=== PATIENT | male | born 1950 | race Caucasian/White ===

== ENCOUNTER 2018-09-16 11:23 | Inpatient (IN) ==
[2018-09-16] MEDS ORDERED: ZOSYN 3.375 GM in NS 50 ML IV ONE (12:56)
[2018-09-16 13:02] LABS: BASO# 0.03 X1000 (0.0-0.2); BASO% 0.3 % (0.0-0.8); EOS# 0.18 X1000 (0.0-0.7); EOS% 1.8 % (0.0-10.0); HEMATOCRIT 36.3 % (42.0-52.0); HEMOGLOBIN 11.8 g/dL (14.0-18.0); IMM GRAN# 0.11 X1000 (0.0-0.04); IMM GRAN% 1.1 % (0.0-0.5); LYMPH% 29.2 % (20.5-51.1); MCH 29.9 PG (27-31); MCHC 32.5 g/dL (33-37); MCV 91.9 FL (81-99); MONO# 0.96 X1000 (0.11-0.59); MONO% 9.4 % (1.7-9.3); MPV 9.8 FL (7.4-10.4); NEUT# 5.98 X1000 (1.4-6.5); NEUT% 58.2 % (42.2-75.2); PLT 337 X1000 (130-400); RBC 3.95 XMIL (4.7-6.1); RDW 13.5 % (11.5-14.5); WBC 10.26 X1000 (4.8-10.8)
[2018-09-16 13:20] LABS: ALB/GLOB RATIO 0.9; ALBUMIN 3.4 g/dL (3.5-5.0); CALCIUM 9.1 mg/dL (8.8-10.2); CREATININE 1.4 mg/dL (0.7-1.2); POTASSIUM 3.9 mmol/L (3.5-5.1); TOTAL BILIRUBIN 0.41 mg/dL (0.20-1.00)
--- NOTE | 2018-09-16 13:23 | Diag Imaging Result Doc PS360 ---
XRAY PELVIS W/HIP 2-3VW LT - 09/16/2018 INDICATION: FALL TECHNIQUE: Two views COMPARISON: 09/24/2014 FINDINGS: Stable defect of the right pubic symphysis and pubic rami. There is worsening severe osteoarthritis of the left hip with complete loss of the joint space. There is also severe sclerosis, irregularity, and spurring. There is moderate osteoarthritis of the right hip as well that appears stable. There is worsening heterogeneous density of the bones throughout the sacral wings. These are compatible with chronic sacral insufficiency fractures. No acute fracture or dislocation. IMPRESSION: Extensive chronic changes. Electronically signed by Travon Fall 09/16/2018 1:21 PM
[2018-09-16 15:27] LABS: URINE SOURCE CATH
[2018-09-16 15:29] LABS: BILIRUBIN URINE NEGATIVE (NEGATIVE); BLOOD URINE SMALL (NEGATIVE); COLOR YELLOW; GLUCOSE URINE NEGATIVE (NEGATIVE); KETONE URINE NEGATIVE (NEGATIVE); LEUKOCYTES URINE LARGE (NEGATIVE); NITRITE URINE NEGATIVE (NEGATIVE); PH URINE 7.5; PROTEIN URINE 50 mg/dL (NEGATIVE); SP GRAVITY URINE 1.011; TURBIDITY URINE TURBID (CLEAR); UROBILINOGEN URINE NORMAL (NORMAL)
[2018-09-16 15:32] LABS: UR EPITHELIAL CELLS <10 /HPF (<10); URINE BACTERIA 4+ /HPF; URINE WBC TNTC /HPF (<10)
[2018-09-16 15:53] LABS: URINE CASTS NONE SEEN; URINE CRYSTALS TRIPLE PHOS PRESENT; URINE YEAST NONE SEEN
--- NOTE | 2018-09-16 17:28 | HISTORY AND PHYSICAL ---
HISTORY OF PRESENT ILLNESS: This is a 67-year-old, 11 years ago noticed some gross hematuria. They found prostate cancer, ended up on biopsy had a Alberto 8. He had positive margin, negative nodes. He underwent robotic surgery per Urology, I think Dr. Fowler here, and this was followed by radiation first and then chemotherapy which need one in his words worked and they put him on hormone therapy which worked for a time. He developed some pain in the left iliosacral area, could not find anything on cystoscopy, but the pain intensified. Eventually they found a bone that had grown into the bladder and he went to [facility] where he had a urostomy pouch and bladder removal. He has had trouble with his left arm. They found metastatic cancer on the right side. During that surgery, somewhere around that surgery, he had a CVA with and they found metastatic cancer on the right side of his brain, had a CVA and affected his left side, left arm and left leg. He has had more trouble getting around and has had some falls and recently had a pretty good fall. His left leg is weaker and he is not able to walk and ambulate and feels much worse. Apparently, there is degenerative arthritis in the left hip and is [id number], and he is not a candidate for surgery. ALLERGIES: Lyrica. FAMILY HISTORY: No pertinent family history. SOCIAL HISTORY: Not much history of alcohol. Used to drink a couple times a year. One or 2 cigars a month. No tobacco. PAST MEDICAL HISTORY: No significant past surgical history other than his cystectomy and urostomy pouch. REVIEW OF SYSTEMS: Constitutional: He has gained weight steadily, so he has been eating pretty good. HEENT: No change in visual or hearing acuity. Musculoskeletal: No neck pain, but he does have bilateral shoulder pain and weakness in his left arm and leg. Neurologic: Legs are weaker. Actually both hips both him but left hip and he is not able to ambulate at this time. He has had several falls. Gastrointestinal and Genitourinary: No complaints of nausea or diarrhea. He does have a urostomy pouch and catheter attached to a leg bag. Skin: No new rashes. HEENT: No complaints of significant head trauma. PHYSICAL EXAMINATION: GENERAL: Awake and alert, oriented x3, very pleasant. VITAL SIGNS: Temperature is 98.1 degrees, pulse 75, respirations 13, blood pressure 148/80. HEENT: Pupils are equal and round. LUNGS: Clear in all lung lam. CARDIOVASCULAR: Regular rhythm and rate without murmur or S3. ABDOMEN: Soft. He has abdominal wall hernia without any pain around his urostomy bag. SKIN: Warm and dry. Multiple areas of ecchymosis on his arms. LABORATORIES: White count 10,260, hematocrit 36, platelet count 337,000. Sodium 140, potassium 3.9, chloride 103, BUN 18, creatinine 1.4, calcium 9.1, AST 16, ALT 11, alkaline phosphatase 151. Urinalysis too numerous to count white blood cells, 10 to 20 red blood cells. He has 4+ bacteria. RADIOLOGIC STUDIES: X-ray of his hip and pelvis here in the emergency room. He has extensive chronic changes. Stable defect in the right pubic symphysis and pubic rami. There is worsening severe osteoarthritis of the left hip. Complete loss of joint space. There is also severe sclerosis irregularly and spurring. There is moderate osteoarthritis of the right hip as well. Appears stable. Worsening heterogeneous density of the bone throughout the sacral wings. Is compatible with chronic sacral insufficiency fractures. No acute fractures identified. ASSESSMENT AND PLAN: 1. General weakness, more pain, unable to walk and he needs to pursue trying to go to rehab. His is not going to be able to care for him at home and get him up. 2. Metastatic prostate cancer with metastasis to the bones and to his head. 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 3. Obesity. 4. He has got acute kidney injury, probably on top of chronic kidney disease. His creatinine is 1.4. We will give him some IV hydration, see if that will help, put him on a regular diet. Lastly we will treat, it is difficult to tell whether this represents an infection but he has quite a few red jae-[id number]-gx-count white blood cells and 4+ bacteria, so we will go ahead and treat him. I think we will use for right now just Rocephin or ceftriaxone 1 g IV q.24 h. He requests to go to [facility] and so we will see if we can get him to [facility]. cc: Romulo Boateng MD
[2018-09-16] MEDS: ROCEPHIN 1 GM in NS 50 ML IV SCH (17:30)
[2018-09-16 17:34] LABS: FREE T4 1.21 ng/dL (0.93-1.70); TSH 2.16 uIUmL (0.27-4.20)
--- NOTE | 2018-09-16 17:52 | PROVIDER DOCUMENTATION ---
This chart was entered by Rhonda Reina Scribe, acting as scribe for Carlene Patterson MD. HPI-Musculoskeletal Pain/Inj - GENERAL Chief Complaint: Hip Pain Stated Complaint: HIP PAIN Time Seen by Provider: 09/16/18 12:25 Source: patient - HX OF PRESENT ILLNESS-MUSKULOSKELTAL Nature of Presenting Problem: Patient is a 67 year old male who presents to the ED via EMS with left hip pain after having a fall 1 week ago. Patient states history of prostate cancer with mets to right side brain. Report having partial paralysis to left arm and left leg from the brain tumor. Patient also reports having a bone spur removed from left pelvic that was in his bladder. Patient has an urostomy. Patient's s tates patient also had a foul odored penile discharge. Quality of Pain: reports: aching Severity in ED: mild Onset/Duration: 1 week ago Timing: still present, getting worse Any recent injury?: Yes (fall ) Locality of Occurance: Home Similar Symptoms Previously?: Yes Recently seen or treated by another doctor?: No - FALL INJURY Location of Pain/Injury: reports: other (left hip) Pain Radiation: reports: no radiation Reason for Fall: reports: unknown Symptoms prior to fall:: reports: none Loss of Consciousness: no loss of consciousness Injury Associated Symptoms: reports: trouble walking - HIP/PELVIS PAIN/INJURY Hip Pain Location: reports: hip (L) Pain Radiation: reports: no radiation Context / Method of Injury: reports: fall - LOWER EXTREMITY PAIN/INJURY Lower Extremities Pain: hip: left Context / Method of Injury: reports: fell Review of Systems - Adult - REVIEW OF SYSTEMS - ADULT Constitutional: reports: no symptoms reported. denies: chills, fever, fatique Eyes: reports: no symptoms reported Ears, Nose, Mouth & Throat: reports: no symptoms reported Cardiovascular: reports: no symptoms reported Respiratory: reports: no symptoms reported Gastrointestinal: reports: no symptoms reported Genitourinary: reports: see HPI, discharge. denies: hematuria, urgency Musculoskeletal: reports: see HPI, other (left hip pain). denies: back pain, muscle aches, neck pain Integumentary: reports: no symptoms reported Neurological: reports: no symptoms reported Psychiatric: reports: no symptoms reported Endocrine: reports: no symptoms reported Hematologic/Lymphatic: reports: no symptoms reported Allergic/Immunologic: reports: no symptoms reported All Other Systems: Reviewed and Negative Past History - Adult - PAST MEDICAL HISTORY-ADULT Review of Records: reports: Old Records Reviewed, Nursing Assessment Review, Medications Reviewed, Social history reviewed & non-contributory. Major Childhood Illnesses: reports: denies history Cardiovascular: reports: HTN, hyperlipidemia Respiratory: reports: denies history Gastrointestinal: reports: denies history Obstetrical/Gynecological: reports: denies history Genitourinary: reports: prostate cancer Musculoskeletal: reports: denies history Neurological: reports: cancer/tumor (tumor) Endocrine/Immune: reports: denies history Other Conditions: reports: denies history - PRIOR SURGERIES/PROCEDURES Surgical/Procedure History: reports: reviewed, not pertinent, other (urosotomy) - IMMUNIZATION STATUS Childhood Immunizations: See Nurse Assessment Flu Vaccine: See Nurse Assessment - FAMILY HISTORY Family History: reviewed, not pertinent - SOCIAL HISTORY Smoking: denies Substance Use: denies Living Situation: family Physical Exam-Injury Related - Physical Exam-Injury Related Initial Vital Signs Reviewed: Yes General Appearance: alert, no apparent distress, obese. negative: lethargic, slow to respond Head, Ears, Nose, Mouth & Throat: normocephalic/atraumatic, moist mucous membranes. negative: angioedema, hearing deficit Respiratory: chest non-tender, lungs clear, normal breath sounds. negative: crackles, rhonchi, wheezing Cardiovascular: normal peripheral pulses, irregularly irregular. negative: tachycardia, systolic murmur Abdominal Exam: normal bowel sounds, non tender, soft, other (urostomy to RLQ). negative: distended, guarding, rebound Male Genitalia: deferred Extremity: non-tender, other (1 + pitting edema to bilateral lower extremities.) . negative: deformity, erythema Integumentary: normal color, warm/dry. negative: ecchymosis, jaundice, rash, abrasion, laceration Neurologic: grossly normal, motor weakness (LUE and LLE, which is chronic from brain tumor.). negative: aphasia, facial droop Psych/Mental Status: normal mood/affect, oriented x 3. negative: anxious, paranoid Progress - PLAN OF CARE/RESULTS Progress/Plan/Lab Results: Laboratory Results - last 24 hr 09/16/18 09/16/18 09/16/18 11:42 11:42 15:05 Vitamin B12 531 Folate 32.6 H TSH 2.16 Free T4 1.21 Urine Crystals TRIPLE PHOS PRESENT Small Round Cells Not Reportable Urine Casts NONE SEEN Urine Yeast-like Cells NONE SEEN Orders Category Date Time Status Admit - [facility] Routine AdmDCTranf 09/16/18 16:25 Active Activity - Up with Assistance ORDERED Care 09/16/18 16:25 Active Intake and Output-Strict ORDERED Care 09/16/18 16:25 Active Saline Loc NOW Care 09/16/18 12:51 Completed Update & Confirm Home Medicati ROUTINE Care 09/16/18 16:28 Completed Vital Signs Order Q 8-HR ASSESS Care 09/16/18 16:25 Active Z-Document. for Tele Applied ORDERED Care 09/16/18 16:26 Completed Social Service Consult Routine Cons 09/16/18 16:31 Active Regular Diet Diet 09/16/18 16:27 Active CHEST-1 VIEW [RAD] Routine Exams 09/17/18 06:00 Completed XRAY PELVIS W/HIP 2-3VW LT [RAD] Stat Exams 09/16/18 12:49 Completed BLOOD CULTURE [BLDCUL] Stat Lab 09/16/18 13:27 Results CBC WITH DIFF [HEME] Routine Lab 09/16/18 18:57 Completed CBC WITH DIFF [HEME] Stat Lab 09/16/18 11:42 Completed COMPREHENSIVE METABOLIC PANEL [CHEM] Routine Lab 09/16/18 18:57 Completed COMPREHENSIVE METABOLIC PANEL [CHEM] Stat Lab 09/16/18 11:42 Completed URINALYSIS W/POSS RFLX CULT [URINALYSIS] Stat Lab 09/16/18 15:05 Completed URINE CULTURE [RM] Routine Lab 09/16/18 15:36 Results URINE MANUAL MICROSCOPIC [URINALYSIS] Stat Lab 09/16/18 15:05 Completed Piperacillin/Tazobactam [Zosyn] 3.375 gm Med 09/16/18 12:56 Discontinued 0.9% Sodium Chloride Inj [Ns] 50 ml IV NOW Telemetry [OM.EQ] Routine Oth 09/16/18 16:25 Active Physical Therapy Eval/Treatment [OM.PT] Routine Ther 09/16/18 16:25 Active Transfer/Admit Order [TRANSFER] Routine Transfer 09/16/18 16:33 Completed Result Diagrams: 09/17/18 06:30 09/17/18 06:30 - XRAY 1 XRAY: Left XRAY Study: Pelvis, Hip Impression: See EMR Report ( XRAY PELVIS W/HIP 2-3VW LT - 09/16/2018 INDICATION: FALL TECHNIQUE: Two views COMPARISON: 09/24/2014 FINDINGS: Stable defect of the right pubic symphysis and pubic rami. There is worsening severe osteoarthritis of the left hip with complete loss of the joint space. There is also severe sclerosis, irregularity, and spurring. There is moderate osteoarthritis of the right hip as well that appears stable. There is worsening heterogeneous density of the bones throughout the sacral wings. These are compatible with chronic sacral insufficiency fractures. No acute fracture or dislocation. IMPRESSION: Extensive chronic changes. Electronically signed by Travon Fall 09/16/2018 1:21 PM 09/16/18 1321 Interpreting Physician: Travon Fall MD Dictated Date/Time: 09/16/18 1318 cc: Carlene Patterson MD; Johnathan Clayton MD) - CONSULTS/PCP/HOSPITALIST Notification #1 *Consult/PCP/Hospitalist*: MOHIT Marrero for Hospitalist Time Discussed: 14:08 Reason/Comments: Dr. Patterson consulted with Elida about patient. Consult Disposition: Will see in ED, Admit Departure - Departure Date of Disposition Decision: 09/16/18 Time of Disposition Decision: 14:08 DIAGNOSIS: UTI (urinary tract infection) Disposition: ADMITTED INPATIENT 09 Certified Medical Emergency: Emergent Condition: Stable - Critical Care Note This patient required my direct & personal management of CC.: No Attestation - Physician/ DENISSE Attestation The physician spent face to face time with patient:: Yes Advanced Practice Provider documentation review:: Supervising physician onsite and consulted in the evaluation and care of this patient. The physician did have a face to face encounter with the patient. This chart was documented by the indicated scribe, (Rhonda Reina Scribe) and accurately reflects the services I performed and decisions made by , Carlene Patterson MD, as attested by the provider's signature.
[2018-09-16 19:17] LABS: BASO# 0.06 X1000 (0.0-0.2); BASO% 0.6 % (0.0-0.8); EOS# 0.18 X1000 (0.0-0.7); EOS% 1.9 % (0.0-10.0); HEMATOCRIT 35.5 % (42.0-52.0); HEMOGLOBIN 11.6 g/dL (14.0-18.0); IMM GRAN# 0.08 X1000 (0.0-0.04); IMM GRAN% 0.9 % (0.0-0.5); LYMPH% 28.8 % (20.5-51.1); MCH 30.4 PG (27-31); MCHC 32.7 g/dL (33-37); MCV 92.9 FL (81-99); MONO# 0.92 X1000 (0.11-0.59); MONO% 9.8 % (1.7-9.3); MPV 9.3 FL (7.4-10.4); NEUT# 5.45 X1000 (1.4-6.5); PLT 291 X1000 (130-400); RBC 3.82 XMIL (4.7-6.1); RDW 13.6 % (11.5-14.5); WBC 9.39 X1000 (4.8-10.8)
[2018-09-16 19:31] LABS: INR 0.95; PROTIME 13.2 Seconds (11.0-16.0)
[2018-09-16 19:32] LABS: PTT 27.4 Seconds (22.3-41.8)
[2018-09-16 19:38] LABS: ALBUMIN 3.4 g/dL (3.5-5.0); CALCIUM 8.6 mg/dL (8.8-10.2); CREATININE 1.3 mg/dL (0.7-1.2); TOTAL BILIRUBIN 0.5 mg/dL (0.20-1.00); TOTAL PROTEIN 6.5 g/dL (6.3-8.3)
[2018-09-16] MEDS: ATIVAN PO SCH (21:38)
[2018-09-16] MEDS: BENADRYL PO SCH (21:39)
[2018-09-16] MEDS: MELATONIN PO SCH (21:39)
[2018-09-16] MEDS: PERCOCET-10 PO SCH (21:39)
[2018-09-16] MEDS: VOLTAREN PO SCH (21:39)
[2018-09-17] MEDS: PROTONIX PO SCH (06:07)
[2018-09-17] MEDS: NS 1,000 ML IV SCH ×2 (06:45→13:12)
[2018-09-17 07:11] LABS: HEMOGLOBIN 10.4 g/dL (14.0-18.0); MCH 29.6 PG (27-31); MCHC 32.5 g/dL (33-37); MCV 91.2 FL (81-99); MPV 9.2 FL (7.4-10.4); RBC 3.51 XMIL (4.7-6.1); RDW 13.4 % (11.5-14.5); WBC 7.38 X1000 (4.8-10.8)
[2018-09-17 07:35] LABS: AGAP 11; ALKALINE PHOSPHATASE 147 U/L (32-122); BUN 17 mg/dL (8-22); CALCIUM 7.9 mg/dL (8.8-10.2); CHLORIDE 106 mmol/L (98-107); COSMO 279; CREATININE 1.2 mg/dL (0.7-1.2); ESTIMATED GFR > 60; GLUCOSE 97 mg/dL (70-104); GOT 14 U/L (10-34); GPT 8 U/L (10-44); MAGNESIUM 1.9 mg/dL (1.5-2.7); POTASSIUM 3.9 mmol/L (3.5-5.1); SODIUM 139 mmol/L (136-145); TCO2 22 mmol/L (25-35); TOTAL PROTEIN 5.8 g/dL (6.3-8.3)
--- NOTE | 2018-09-17 07:50 | Diag Imaging Result Doc PS360 ---
EXAM: CHEST-1 VIEW - 09/17/2018 HISTORY: general weakness TECHNIQUE: One view chest COMPARISON: 09/02/2014 FINDINGS: Heart size appears within normal limits. The lungs appear clear. There is no pleural effusion or pneumothorax identified. IMPRESSION: No evidence of acute disease. Electronically signed by Galen Irwin 09/17/2018 7:48 AM
[2018-09-17] MEDS ORDERED: SOLU-MEDROL IV ONE (09:19)
[2018-09-17] MEDS: ATIVAN PO SCH ×2 (09:53→21:46)
[2018-09-17] MEDS: VOLTAREN PO SCH ×2 (09:54→21:46)
[2018-09-17] MEDS: EFFEXOR XR PO SCH (09:54)
[2018-09-17] MEDS: PERCOCET-10 PO SCH ×2 (09:54→21:47)
[2018-09-17] MEDS: KEPPRA PO SCH (09:54)
[2018-09-17] MEDS: ROCEPHIN 1 GM in NS 50 ML IV SCH (17:22)
--- NOTE | 2018-09-17 18:11 | EKG Report ---
Test Performed on : 09/17/2018 6:03:55 PM Test Reason : ELEVATED TROPINE Blood Pressure : / mmHG Vent. Rate : 056 BPM Atrial Rate : 056 BPM P-R Int : 160 ms QRS Dur : 096 ms QT Int : 500 ms P-R-T Axes : 025 -16 029 degrees QTc Int : 482 ms Sinus bradycardia. with frequent premature ventricular complexes. Nonspecific ST and T wave abnormality Prolonged QT Abnormal ECG When compared with ECG of 07-JUN-2010 19:48, Sinus rhythm. has replaced Atrial flutter. Vent. rate has decreased BY 49 BPM Nonspecific T wave abnormality now evident in Inferior leads Nonspecific T wave abnormality, worse in Anterolateral leads Unconfirmed Result
--- NOTE | 2018-09-17 19:35 | PROGRESS NOTE ---
DATE: 09/17/2018 SUBJECTIVE: The patient notes that he is still hurting all over, but denies that his pain is any worse than usual. He states he is still having pain in his left hip. He notes that he frequently has falling episodes at home. OBJECTIVE: Vital signs reviewed. He is awake, alert. He is in no distress. He is pleasant to talk with.HEENT: Normocephalic, atraumatic. ANN. Neck supple. No JVD. CV: Regular rate. No murmurs. Chest clear, nonlabored. Abdomen soft, obese. Positive ostomy bag. Extremities: He is able to move all extremities. ASSESSMENT: 1. Generalized weakness with frequent falls. 2. Metastatic prostate cancer with metastasis to bone and brain. 3. Left hip pain. 4. Chronic pain. 5. Chronic kidney injury. 6. Elevated troponin. His most recent troponin was elevated. 7. Urinary tract infection. PLAN: We will continue the patient in the hospital. We will get an EKG, repeat his troponin, and we will discuss with Cardiology options regarding his troponin levels. We will continue antibiotics until his urine culture is finalized. cc: Polo Moreno MD
[2018-09-17] MEDS: MELATONIN PO SCH (21:46)
[2018-09-17] MEDS: BENADRYL PO SCH (21:47)
[2018-09-17] MEDS ORDERED: TYLENOL PO PRN (23:15)
[2018-09-18] MEDS: PROTONIX PO SCH ×2 (05:04→06:04)
[2018-09-18 07:13] LABS: HEMATOCRIT 30.3 % (42.0-52.0); HEMOGLOBIN 9.9 g/dL (14.0-18.0); MCH 29.8 PG (27-31); MCHC 32.7 g/dL (33-37); MCV 91.3 FL (81-99); MPV 9.6 FL (7.4-10.4); RBC 3.32 XMIL (4.7-6.1); RDW 13.3 % (11.5-14.5); WBC 7.85 X1000 (4.8-10.8)
[2018-09-18 08:10] LABS: ALBUMIN 3.1 g/dL (3.5-5.0); CREATININE 1.3 mg/dL (0.7-1.2); POTASSIUM 4.2 mmol/L (3.5-5.1); TOTAL BILIRUBIN 0.3 mg/dL (0.20-1.00); TOTAL PROTEIN 5.8 g/dL (6.3-8.3)
[2018-09-18] MEDS: PERCOCET-10 PO SCH ×2 (08:32→20:42)
[2018-09-18] MEDS: EFFEXOR XR PO SCH (08:33)
[2018-09-18] MEDS: KEPPRA PO SCH (08:33)
[2018-09-18] MEDS: ATIVAN PO SCH ×2 (08:33→20:42)
[2018-09-18] MEDS: VOLTAREN PO SCH ×2 (08:33→20:42)
[2018-09-18] MEDS ORDERED: DURAGESIC 25 MICROGM/HR PATCH TD SCH (09:00)
[2018-09-18] MEDS ORDERED: DURAGESIC 50 MICROGM/HR PATCH TD SCH (09:00)
[2018-09-18] MEDS ORDERED: DURAGESIC 75 MICROGM/HR PATCH TD SCH (09:00)
--- NOTE | 2018-09-18 14:18 | PROGRESS NOTE ---
DATE: 09/18/2018 SUBJECTIVE: Patient denies any chest pain or palpitations. Denies any shortness of breath. He states he is starting to feel a bit better and starting to feel a little bit stronger. He is still having difficulty ambulating. PHYSICAL EXAMINATION: Vital Signs: Temperature 98 degrees, pulse 57, respiratory rate 18, and BP 131/59. General: Patient is in no current respiratory distress sitting in the bed talking to his family. HEENT: Normocephalic. Neck: Supple. Cardiovascular: Regular rate. Chest: Clear and nonlabored. Abdomen: Soft. Nondistended. Extremities: Moves all extremities. Neurologic: No changes. ASSESSMENT: 1. Elevated troponin. 2. Urinary tract infection with gram-negative rods. 3. Chronic left hip and back pain. 4. Generalized weakness with frequent falls. 5. Metastatic prostate cancer. PLAN: We will consult Cardiology for their opinion on his elevated troponin. We will continue to follow. Continue physical therapy. Further orders as needed. Continue antibiotics. cc: Polo Moreno MD
[2018-09-18] MEDS: ROCEPHIN 1 GM in NS 50 ML IV SCH (17:18)
--- NOTE | 2018-09-18 20:15 | CONSULTATION ---
DATE OF CONSULTATION: 09/18/2018 IMPRESSION: 1. Mild nonspecific elevation in troponin of unclear clinical significance. Patient has not had any chest pain or dyspnea symptoms. However, he did have fatigue last week and clinical scenario with metastatic prostate cancer and relative immobilization raise concern regarding venous thromboembolism. 2. Metastatic prostate cancer. 3. Metastatic prostate cancer to right hemisphere of the brain with resultant left-sided weakness and relative immobilization which has been worse of late. RECOMMENDATIONS: 1. Echocardiography. 2. Venous Doppler study. 3. Consider screen for pulmonary embolus with chest CT scan. 4. Otherwise conservative cardiovascular management as preferred by patient. He is fully aware of his limited prognosis with stage IV prostate cancer and expresses his desired to have conservative management and forego any pursuit of invasive coronary evaluation should it come to this. This is certainly very reasonable. 5. Treat urinary infection as you are doing. 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 Evaluation was noteworthy for significant white blood cells in urine as well as mild nonspecific elevation in troponin. Because of the latter, Cardiology was consulted. He denies any chest pain or shortness of breath. He is not able to get around very well over the past few weeks. He does relate that for a period of time last week he had some rather unusual fatigue. He has chronic tendency for left lower extremity to have swelling. PAST MEDICAL HISTORY: Metastatic prostate cancer. This was recently diagnosed 11 years ago when he presented with gross hematuria. He had a Alberto's 8 on his biopsy and he underwent robotic prostatectomy. Margins were positive and lymph nodes were negative. He had radiation therapy. Apparently, because of some elevation in PSA, he later had chemotherapy and was started on hormonal therapy. 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 He had cystectomy and urostomy pouch created. In the last few years he started having left-sided weakness and was found to have a metastatic lesion in the right brain. He has had radiation therapy directed at this as well. ALLERGIES: He is allergic or intolerant to Lyrica. MEDICATIONS PRIOR TO ADMISSION: As listed. 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. He smokes a few cigars per week. He does not use alcohol. FAMILY HISTORY: Positive for prostate cancer and breast cancer. There is family history of coronary disease with older age of clinical onset. REVIEW OF SYSTEMS: Pulmonary: Noncontributory regarding the history of present illness. Gastrointestinal: Noncontributory regarding the history of present illness. Constitutional: Noncontributory regarding the history of present illness. Remainder of review of systems negative/noncontributory regarding the history present illness with 14 total systems reviewed. PHYSICAL EXAMINATION: Reveals an obese, older white male in no distress.Vital signs: Blood pressure 120/68, heart rate 57, oxygen saturation 97% on room air. HEENT: Extraocular movements appear intact. Mucous membranes moist. Neck: Supple, without jugular venous distention. No carotid bruits. Chest: Clear to auscultation. Cardiac Exam: Reveals a regular rate and rhythm without appreciable murmur or gallop. Abdomen: Soft. Bowel sounds are normal. Extremities: Noteworthy for trace edema bilaterally. Neurologic: Reveals left-sided weakness. Speech is fluent. PERTINENT DATA: Twelve-lead EKG demonstrates sinus bradycardia with occasional premature ventricular complexes and nonspecific ST and T-wave abnormality. LABORATORY DATA: Includes white blood cell count 7.5, hematocrit 30.3, hemoglobin 9.9, platelet count 288,000. Sodium 140, potassium 4.2, chloride 108, carbon dioxide 21, BUN 19, creatinine 1.3, glucose 105. Initial troponin 0.157. Followup troponin 0.124 and 0.115. Initial CPK 84. Followup CPK 78 and 74. Urinalysis noteworthy for ejz-oukgarlb-ia-count white blood cells in the urine. cc: Vinicio Grullon MD
--- NOTE | 2018-09-18 20:21 | Extremity Venous Study ---
EXAM: Venous U/S Bilateral Legs 09/18/2018 HISTORY: rule out DVT TECHNIQUE: Compression venous ultrasound with color Doppler flow COMMENT: The deep veins of the lower extremities are compressible and there is normal color Doppler flow bilaterally with augmentation. No evidence of superficial venous thrombosis is present. IMPRESSION: No evidence of deep venous thrombosis. Electronically signed by Arcadio Torrez 09/18/2018 8:18 PM
[2018-09-18] MEDS: MELATONIN PO SCH (20:42)
[2018-09-18] MEDS: BENADRYL PO SCH (20:42)
[2018-09-19] MEDS: PROTONIX PO SCH ×2 (05:22→06:01)
[2018-09-19] MEDS: EFFEXOR XR PO SCH (08:11)
[2018-09-19] MEDS: VOLTAREN PO SCH (08:11)
[2018-09-19] MEDS: KEPPRA PO SCH (08:11)
[2018-09-19] MEDS: ATIVAN PO SCH (08:11)
[2018-09-19] MEDS: PERCOCET-10 PO SCH (08:12)
[2018-09-19] MEDS ORDERED: OMNICEF PO SCH (09:00)
[2018-09-19] MEDS ORDERED: PRINIVIL PO SCH (09:00)
--- NOTE | 2018-09-19 10:13 | ECHO REPORT ---
ORDER DATE: 09/18/2018 INTERPRETING PHYSICIAN: Dr. Carr REQUESTING PHYSICIAN: Hospitalist. CLINICAL INDICATIONS: Positive troponin, cancer of the prostate. M-MODE MEASUREMENTS: Left ventricle end diastole: 5.37 cm. Left ventricle end systole: 2.3 cm. Posterior wall: 1.1 cm. Interventricular septum: 1.0 cm. Left atrium: 5.1 cm. Aortic diameter: 4.0 cm. SUMMARY OF 2-DIMENSIONAL IMAGING: This study was really very limited. The patient is obese. Optison was added to optimize visualization of the endocardium. The patient's cardiac cycles are irregular and he is probably in atrial fibrillation. All of the segments of the left ventricle seem to have preserved contractility. Ejection fraction is estimated grossly at 55%. I do not see definite wall motion abnormality. The right sided chambers appear to be slightly prominent. The left atrium also appears to be mild to moderately enlarged. Aortic valve is grossly unremarkable. The patient appears to be in low cardiac output state. Mitral valve shows no significant regurgitation. Pulse wave Doppler of mitral inflow shows a single filling wave. The pulmonic valve is grossly unremarkable. Tricuspid valve is also grossly unremarkable. The inferior vena cava was not visualized. Pulmonary pressure may be in the order of 30-35 mmHg. There is no pericardial effusion, mass and no thrombus. Clinical correction recommended. cc: MD Vinicio Rosario MD
--- NOTE | 2018-09-19 11:31 | DISCHARGE SUMMARY ---
ADMISSION DATE: 09/16/2018 DISCHARGE DATE: 09/19/2018 CONSULTATIONS: Dr. Vinicio Grullon with Cardiology. PROCEDURES: Hip pelvis x-ray, extensive chronic change. Chest x-ray, no evidence of acute disease. Bilateral lower extremity Dopplers, no evidence of DVT. DISCHARGE DIAGNOSES: 1. Mild nonspecific elevation of troponin of unclear significance. He was ruled out for deep vein thrombosis. He denies any chest pain or dyspnea. 2. Metastatic prostate cancer with right hemisphere of the brain with left-sided weakness and immobilization. This has increasingly gotten worse. He has been accepted to rehab and will be discharged there today. 3. Urinary tract infection. Gram-negative rods that grew out Citrobacter freundii. HOSPITAL COURSE: Briefly, Mr. 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 He denied any chest pain or shortness of breath. There was some concern over possible VTE given his most recent increase in weakness. Bilateral Doppler ultrasounds ruled that out. He was evaluated by Cardiology. He treated for his urinary tract infection. He was assessed by physical therapy, who recommended rehab and the patient will be discharged to [facility]. VITAL SIGNS: At time of discharge, temperature is 97.3 degrees, heart rate 51, respirations 18, blood pressure 158/54, O2 is 97% on room air. DISCHARGE DIET: Regular. DISCHARGE MEDICATIONS: 1. Benadryl 25 mg p.o. at bedtime. 2. Effexor 75 mg p.o. daily. 3. Keppra 500 mg p.o. daily. 4. Protonix 40 mg p.o. daily. 5. Voltaren 75 mg p.o. b.i.d. 6. Melatonin 10 mg p.o. at bedtime. 7. Ativan 1 mg p.o. b.i.d. 8. Fentanyl patch 75 mcg/hour, 1 each TD, q.72 hours. 9. Endocet 10/325 mg 1 each p.o. b.i.d. 10. Lorazepam 1 mg p.o. b.i.d. 11. Omnicef 300 mg p.o. b.i.d. 12. Prinivil 10 mg p.o. daily. FOLLOWUP: Mr. Tompkins is being discharged to rehab today where he will continue with physical therapy. He is to take all medications and antibiotics as prescribed. He can return to the ED or call 911 for any worsening of symptoms. He is to follow up with his PCP, Dr. Johnathan Clayton. Dictated by MOHIT Ibrahim for Polo Moreno MD cc: MD Johnathan Aguilar MD
[2018-09-19 14:09] VITALS: BP 154/74
--- NOTE | 2018-09-20 03:10 | PROGRESS NOTE ---
DATE: 09/19/2018 SUBJECTIVE: The patient seen and examined by myself. Full note dictated and discussed with nurse practitioner. The patient thankfully had an uneventful hospital course. Was admitted to the hospital. Was noted to have elevated blood pressures and an elevated troponin. Troponin is most likely secondary to his chronic illness and not due to an acute TN as he is currently asymptomatic. Cardiology has been consulted and agreed. The patient unfortunately has generalized weakness. We admitted him to the hospital. Had Physical Therapy involved. He was noted to have a urinary tract infection, was placed on antibiotics. He grew Citrobacter. Patient will be discharged to rehab. Continue antibiotics. Continue physical therapy and his other chronic home medications. cc: Polo Moreno MD
== END 2018-09-19 13:15 | DRG 690 ==
LOC: SUPCPDRO → ED 11:23 → P.MEDSURG 16:36
PROVIDERS: ATTEND Family Medicine
CPT/HCPCS: 71010; 71045; 73502; 80053; 81001; 82550; 82607; 82746; 83605; 83735; 84439; 84443; 84484; 85025; 85027; 85610; 85730; 87040; 87077; 87088; 87186; 93005; 93306; 93970; 97112; 97163; 97530; A9270; C8929; J0696; J2543; J2930; J7030; Q9957

== ENCOUNTER 2018-10-09 14:40 | Inpatient (IN) ==
[2018-10-09] MEDS ORDERED: NS 1,000 ML IV ONE (15:12)
[2018-10-09] MEDS ORDERED: ROCEPHIN 1 GM in NS 50 ML IV ONE (15:14)
[2018-10-09 15:55] LABS: URINE SOURCE VOIDED
[2018-10-09 16:00] LABS: BILIRUBIN URINE MODERATE (NEGATIVE); BLOOD URINE LARGE (NEGATIVE); CLARITY TURBID (CLEAR); COLOR RED; GLUCOSE URINE NEGATIVE (NEGATIVE); KETONE URINE TRACE mg/dL (NEGATIVE); LEUKOCYTES URINE MODERATE (NEGATIVE); NITRITE URINE POSITIVE (NEGATIVE); PROTEIN URINE >=300 mg/dL (NEGATIVE)
[2018-10-09 16:01] LABS: BASO# 0.03 X1000 (0.0-0.2); BASO% 0.3 % (0.0-0.8); EOS# 0.26 X1000 (0.0-0.7); HEMATOCRIT 34.1 % (42.0-52.0); IMM GRAN# 0.08 X1000 (0.0-0.04); IMM GRAN% 0.9 % (0.0-0.5); LYMPH# 1.78 X1000 (1.2-3.4); LYMPH% 20.2 % (20.5-51.1); MCH 29.5 PG (27-31); MCHC 32.3 g/dL (33-37); MCV 91.4 FL (81-99); MONO# 1.29 X1000 (0.11-0.59); MONO% 14.6 % (1.7-9.3); MPV 9.4 FL (7.4-10.4); NEUT# 5.37 X1000 (1.4-6.5); PLT 282 X1000 (130-400); RBC 3.73 XMIL (4.7-6.1); RDW 13.9 % (11.5-14.5); WBC 8.81 X1000 (4.8-10.8)
[2018-10-09 16:05] LABS: URINE BACTERIA 2+ /HFP; URINE EPITHELIAL CELLS <10 /HPF (<10); URINE RBC TNTC /HPF (<10); URINE WBC 20-40 /HPF (<10)
[2018-10-09 16:21] LABS: POTASSIUM 4.7 mmol/L (3.5-5.1)
[2018-10-09 16:22] LABS: ALB/GLOB RATIO 0.7; ALBUMIN 2.6 g/dL (3.5-5.0); CALCIUM 8.7 mg/dL (8.8-10.2); CREATININE 2.4 mg/dL (0.7-1.2); TOTAL BILIRUBIN 0.54 mg/dL (0.20-1.00); TOTAL PROTEIN 6.4 g/dL (6.3-8.3)
--- NOTE | 2018-10-09 16:59 | Diag Imaging Result Doc PS360 ---
CT HEAD W/O CONTRAST - 10/09/2018 INDICATION: confusion COMPARISON: 05/15/2016 FINDINGS: There has been right-sided craniectomy. The right cerebral hemisphere mass is significantly improved or completely resolved. There is increasing cerebral white matter hypodensity/gliosis. No intracranial hemorrhage. No new masses. There is stable severe chronic sinusitis of the right maxillary sinus. Other sinuses are clear. Mastoids and middle ears are clear. IMPRESSION: Improvement from prior. No acute intracranial process. This exam was performed using automated exposure control, adjustment of mA or kV according to patient size, and/or use of iterative reconstruction technique Electronically signed by Travon Fall 10/09/2018 4:57 PM
--- NOTE | 2018-10-09 17:10 | PROVIDER DOCUMENTATION ---
This chart was entered by Purvi Parrish Scribe, acting as scribe for Ann Earl MD. HPI-Abdominal Pain/GI Problem - General Stated Complaint: BLOOD IN OSTOMY BAG Time Seen by Provider: 10/09/18 14:50 Source: patient, EMS (first response) Unable to obtain history due to:: altered Allergies/Adverse Reactions: Patient Allergies Allergy/AdvReac Type Severity Reaction Status Date / Time gabapentin [From Neurontin] AdvReac LEG Verified 05/15/16 10:45 SWELLING pregabalin [From Lyrica] AdvReac LEG Verified 05/15/16 10:45 SWELLING Home Medications: Home Medication List Medication Instructions Recorded Confirmed Last Taken Type Diclofenac Na D.r. [Voltaren] 75 mg PO BID 09/16/18 09/16/18 Unknown History Diphenhydramine [Benadryl] 25 mg PO QHS 09/16/18 09/16/18 Unknown History Levetiracetam [Keppra] 500 mg PO DAILY 09/16/18 09/16/18 Unknown History Pantoprazole [Protonix] 40 mg PO DAILY@0700 09/16/18 09/16/18 Unknown History Venlafaxine [Effexor] 75 mg PO DAILY 09/16/18 09/16/18 Unknown History CefDINIR [Omnicef] 300 mg PO BID cap 09/19/18 Unknown Rx Fentanyl 75 Microgm/Hr Patch 1 ea TD Q72H #3 patch 09/19/18 Unknown Rx [Duragesic 75 Microgm/Hr Patch] LISINOpril [Prinivil] 10 mg PO DAILY tab 09/19/18 Unknown Rx Lorazepam 1 tab PO BID #10 tab 09/19/18 Unknown Rx Lorazepam [Ativan] 1 mg PO BID tab 09/19/18 Unknown Rx Melatonin 10 mg PO QHS tab 09/19/18 Unknown Rx Oxycodone HCl/Acetaminophen 1 ea PO BID #20 tab 09/19/18 Unknown Rx [Endocet 10-325 mg Tablet] - History of Present Illness-ABD Nature of Presenting Problems: 67 yowm presents to the ed with blood in ostomy bag. pt is pleasant but confused on exam. pt sts has had bleeding 5 days but ems sts nurse at [facility] noted today. pt is poor historian and is not at bedside Quality of Pain: reports: none Severity in ED: reports: moderate Onset/Duration: reports: unsure Timing: reports: still present Activities at Onset: reports: light activity Exposure to sick contacts?: No Modifying Factors: improves with: nothing Associated Symptoms: denies: back/neck pain, chest pain, cough, headaches, nausea, shortness of breath, vomiting, weakness Last BM: other (ostomy bag) Dark Stools Present?: reports: maroon # of Diarrhea Episodes: 0 (loose stool in ostomy) # of Vomiting Episodes: 0 Emesis Description: reports: none Bruising or Bleeding Gums?: No Similar Symptoms Previously?: No Recently seen or treated by another doctor?: No Review of Systems - Adult - REVIEW OF SYSTEMS - ADULT ROS:: limited per condition Constitutional: denies: chills, fever Eyes: reports: no symptoms reported Ears, Nose, Mouth & Throat: reports: no symptoms reported Cardiovascular: reports: see HPI, edema. denies: chest pain, palpitations Respiratory: denies: shortness of breath, wheezing Gastrointestinal: reports: see HPI, other (ostomy bag has blood) Genitourinary: reports: no symptoms reported Musculoskeletal: reports: no symptoms reported Integumentary: reports: no symptoms reported Neurological: reports: see HPI, other (aphasia). denies: dizziness/vertigo, headache/migraines, slurred speech, syncope Psychiatric: reports: no symptoms reported Endocrine: reports: no symptoms reported Hematologic/Lymphatic: reports: no symptoms reported Allergic/Immunologic: reports: no symptoms reported All Other Systems: Reviewed and Negative Past History - Adult - PAST MEDICAL HISTORY-ADULT Review of Records: reports: Old Records Reviewed, Nursing Assessment Review, Medications Reviewed, Social history reviewed & non-contributory. Major Childhood Illnesses: reports: denies history Cardiovascular: reports: HTN, hyperlipidemia Respiratory: reports: denies history Gastrointestinal: reports: denies history Genitourinary: reports: prostate cancer Musculoskeletal: reports: arthritis Hand Dominance: Right Handed Neurological: reports: cancer/tumor (tumor), CVA, stroke deficits (LUE) Psychiatric: reports: denies history Endocrine/Immune: reports: denies history Other Conditions: reports: deaf/hard of hearing - PRIOR SURGERIES/PROCEDURES Surgical/Procedure History: reports: reviewed, not pertinent, joint replacement, other (urosotomy) - IMMUNIZATION STATUS Childhood Immunizations: See Nurse Assessment Flu Vaccine: See Nurse Assessment - FAMILY HISTORY Family History: reviewed, not pertinent - SOCIAL HISTORY Smoking: quit greater than 1 year Substance Use: denies Alcohol Use Frequency: never Living Situation: care facility ([facility]) Physical Exam-General - PHYSICAL EXAM-ADULT Exam Limited by: pt is confused and no family is at bedside Initial Vital Signs Reviewed: Yes - CONSTITUTIONAL General Appearance: appears well, alert, no apparent distress, obese - EYES Eyes: PERRL/EOMI, pink conjunctivae - HEAD, EARS, NOSE, MOUTH & THROAT HENMT: moist mucous membranes, dental decay, hearing deficit - NECK Neck: non-tender, full range of motion, supple, normal inspection - RESPIRATORY Respiratory: chest non-tender, lungs clear, normal breath sounds - CARDIOVASCULAR Cardiovascular: normal peripheral pulses, regular rate, rhythm - GASTROINTESTINAL (ABDOMEN) Abdominal Exam: normal bowel sounds, non tender, soft, other (ostomy bag with blood RLQ). negative: guarding, rigid, rebound - LYMPHATIC Lymphatic: no adenopathy - MUSCULOSKELETAL Back Exam: normal inspection, no CVA tenderness, no vertebral tenderness Extremity: no calf tenderness, normal capillary refill, pelvis stable, erythema (BUE), swelling (LLE 1+). negative: normal gait (pt unable to walk) - SKIN Integumentary: normal color, normal turgor, warm/dry, erythema (BUE), swelling (LLE) - NEUROLOGIC Neurologic: motor weakness (BLE). negative: facial droop - PSYCHIATRIC Psych/Mental Status: disoriented x 3 Progress - PLAN OF CARE/RESULTS Progress/Plan/Lab Results: Orders Category Date Time Status CBC WITH DIFF [HEME] Stat Lab 10/09/18 15:00 Uncollected COMPREHENSIVE METABOLIC PANEL [CHEM] Stat Lab 10/09/18 15:11 Uncollected URINALYSIS W/POSS RFLX CULT [URINALYSIS] Stat Lab 10/09/18 15:11 Uncollected 0.9% Sodium Chloride Inj [Ns] 1,000 ml Med 10/09/18 15:12 Active IV 999 mls/hr Result Diagrams: 10/09/18 15:25 10/09/18 15:25 - CONSULTS/PCP/HOSPITALIST Notification #1 *Consult/PCP/Hospitalist*: Nyasia RUEDA Time Discussed: 17:08 Consult Disposition: Admit (encephalopathy and UTI) Departure - Departure Date of Disposition Decision: 10/09/18 Time of Disposition Decision: 17:09 DIAGNOSIS: Encephalopathy acute, UTI (urinary tract infection), Hematuria Disposition: ADMITTED INPATIENT 09 Certified Medical Emergency: Emergent Condition: Stable Referrals and Follow-Ups: Johnathan Clayton MD [Primary Care Provider] - - Critical Care Note This patient required my direct & personal management of CC.: No Attestation - Physician/ DENISSE Attestation Patient care was provided by Advanced Practice Provider:: No The physician spent face to face time with patient:: Yes Advanced Practice Provider documentation review:: Supervising physician onsite and consulted in the evaluation and care of this patient. The physician did have a face to face encounter with the patient. This chart was documented by the indicated scribe, (Purvi Parrish Scribe) and accurately reflects the services I performed and decisions made by me, Ann Earl MD, as attested by the provider's signature.
--- NOTE | 2018-10-09 17:39 | ED EKG INTERP ---
This chart was entered by Purvi Parrish Scribe, acting as scribe for Ann Earl MD. EKG Interpretation - EKG Time of EKG reading by physician:: 17:32 EKG Read and Signed by:: Ann Earl EKG Interpretation (*Must complete 3 of following elements*): Abnormal Rate: 73 Rhythm: sinus rhythm w/ sinus arrhythmia occ pvc [place]: normal QRS: PVC's MN Interval: normal ST Wave: normal Comments: nonspecific ST and T wave abnormlaity Attestation - Physician/ DENISSE Attestation Patient care was provided by Advanced Practice Provider:: No The physician spent face to face time with patient:: Yes Advanced Practice Provider documentation review:: Supervising physician onsite and consulted in the evaluation and care of this patient. The physician did have a face to face encounter with the patient. This chart was documented by the indicated scribe, (Purvi Parrish Scribe) and accurately reflects the services I performed and decisions made by me, Ann Earl MD, as attested by the provider's signature.
[2018-10-09] MEDS ORDERED: TYLENOL PO PRN (18:20)
[2018-10-09 19:09] LABS: INR 1.03; PROTIME 14.3 Seconds (11.0-16.0)
[2018-10-09 19:10] LABS: PTT 46.4 Seconds (22.3-41.8)
--- NOTE | 2018-10-09 19:12 | HISTORY AND PHYSICAL ---
ADDENDUM: This is an addendum to the history and physical dictated by the nurse practitioner. I agree with most components of history, physical, assessment, and plan In brief, Mr. 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 Comes in with chief complaints of decreasing responsiveness and weakness, and worsening confusion. In the emergency room, he was found to have acute kidney injury, pyuria. Hospitalist team has been consulted for further management. SUBJECTIVE: At the time of my evaluation, patient does have some confusion and has word-finding difficulty. The patient's is at bedside. PHYSICAL EXAMINATION: VITAL SIGNS: Temperature of 97.7 degrees, pulse 75, respiratory rate 12, blood pressure 160/70, saturating 100% on room air. GENERAL: Morbidly obese. Not in any acute distress. ENT: Oral cavity is dry. LUNGS: Air entry bilaterally equal. No wheeze, rhonchi, crackles. CARDIAC: S1, S2 normal. He does have frequent PVC on monitor. No murmur, rub, or gallop. ABDOMEN: Obese, soft, nontender. Right lower quadrant ileostomy with a lot of residue and some clots, but otherwise urine appears clear. NEUROLOGIC: He does have fine motor weakness of left upper and left lower extremity. Currently, his confusion, not following neurological examination completely, but he is moving both upper extremities spontaneously, more movement noticed on the right. He does have bilateral lower extremity edema. LABORATORY: Suggestive of no leukocytosis, normocytic anemia, normal platelet count. He does have hyperchloremia and low bicarbonate likely because of ileostomy, acute kidney injury on chronic kidney disease stage III, chronically elevated alkaline phosphatase, pyuria, and hematuria. Microbiology, no new data. Urine culture and blood culture are pending. CODE STATUS: Do Not Resuscitate level 1. ASSESSMENT: 1. 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 2. Acute encephalopathy, likely because of acute kidney injury and recurrent urinary tract infection. 3. YINKA on Chronic kidney disease stage III. 4. Hyperchloremic metabolic acidosis, likely because of ileal conduit. 5. Pyuria and hematuria. 6. Essential hypertension. 7. History of prostate and urinary bladder cancer, status post right craniectomy, radiation, and cystectomy. PLAN: Start patient on intravenous fluids, intravenous Zosyn. Resume his levetiracetam for history of seizure. Admit the patient for close monitoring to the medical floor. Plan of care discussed with the patient's . All of her questions have been answered. cc: Kris Bowling MD MTDD
--- NOTE | 2018-10-09 19:54 | HISTORY AND PHYSICAL ---
PRIMARY ONCOLOGIST: Dr. Saavedra. PRIMARY CARE PROVIDER: Dr. Johnathan Clayton. CHIEF COMPLAINT: Altered mental status with dark urine. HISTORY OF PRESENT ILLNESS: Mr. Octavio Tompkins is a 67-year-old male, with a medical history of prostate cancer with brain mets and cystectomy with urostomy pouch who is here from [facility] with complaints of darkened urine and altered mental status. His most recent history was early September. He was admitted and treated for urinary tract infection at that time. He was then sent to [facility]. With treatment of Rocephin and then at least 7 or 8 days ago started having dark urine dark, darkened daily along with confusion or worsening thought process. Urinalysis here reveals he has a significant urinary tract infection. He has got mild acute kidney injury on CKD stage 3, so we will keep him here. We will check a urine culture and treat him with Zosyn for now. PAST MEDICAL HISTORY: 1. In 2007, diagnosed with prostate cancer. Had prostatectomy. 2. In 2010, had a bone spur that kept causing damage to the bladder and so had a cystectomy with urostomy pouch placement. 3. In 2015, was found to have brain mets from his prostate cancer. Had a right craniectomy. Postoperatively, had a small right hemispheric bleed that left him with some loss of strength and movement in the left upper and lower extremity. Also had 10 full brain radiation treatments at that time. 4. In May 2018, had 5 more brain radiation treatments. 5. Chronic kidney disease stage 3. 6. Diabetes mellitus. 7. 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 8. Anxiety. 9. Constipation. SURGICAL HISTORY: 1. Prostatectomy in 2007. 2. Cystectomy and urostomy pouch with pelvic bone removed due to brown bone from radiation in 2010. 3. Right craniectomy in 2015. SOCIAL HISTORY: Denies tobacco, alcohol or illicit drug use. Currently residing at [facility] for rehabilitation. FAMILY HISTORY: Positive for diabetes. Father had prostate cancer. His mother had diabetes, high blood pressure and stroke. ALLERGIES: Lyrica and gabapentin causes swelling in the lower extremities. HOME MEDICATIONS: 1. Benadryl 25 mg p.o. nightly. 2. Milk of magnesia 30 mL p.o. at bedtime p.r.n. 3. Polyethylene glycol 1 dose p.o. nightly. Hold for loose stools. 4. Colace 100 mg p.o. twice daily. 5. Effexor 75 mg p.o. daily. 6. Keppra 500 mg p.o. daily. 7. Protonix 40 mg p.o. daily. 8. Voltaren 275 mg p.o. twice daily. 9. Zytiga 1000 mg p.o. daily. 10. Fentanyl patch transdermal every 72 hours. 11. Ativan 1 mg p.o. twice daily. 12. Lisinopril 10 mg p.o. daily. REVIEW OF SYSTEMS: Review of systems were very difficult to obtain. He was confused, but he denies any pain. A 14-point review of systems are complete and all are negative, except for those mentioned above HPI. PHYSICAL EXAMINATION: VITAL SIGNS: Temperature 97.7 degrees, heart rate 64, respiratory rate 16, blood pressure 160/78, O2 saturation 97% on room air. GENERAL: Mr. Octavio Tompkins is a 67-year-old male. He is in no acute distress. He is able answer some questions appropriately, but essentially has confused conversation. HEENT: Atraumatic, normocephalic. Pupils equal, round, reactive to light. Extraocular movements intact. Mucous membranes are dry. He actually does have a little bit of a left facial droop. NECK: Trachea midline. CARDIOVASCULAR: S1, S2. Regular rate and rhythm. No rubs, gallops, murmurs. One plus lower extremity edema, +2 dorsalis and radial pulses. Negative for JVD or carotid bruits. PULMONARY: Clear to auscultation. Bilateral breath sounds. No accessory muscle use or work of breathing noted. GI: Soft, nontender, nondistended. Positive bowel sounds x4. EXTREMITIES: About 2/5 strength in the left upper and lower extremities, 4/5 strength in the right upper and lower extremities. Decreased range of motion. NEUROLOGIC: Oriented to name only. Confused conversation. Random thought process. SKIN: Warm, dry, and intact. Dusky and pale. LABORATORY DATA: White blood cells 8000, hemoglobin 11, hematocrit 34, platelet count 282,000. Sodium 138, potassium 4.7, BUN 33, creatinine is 2.4. Glucose 97, calcium 8.7, bilirubin 0.54. AST 21, ALT 7. Albumin 2.6. Urinalysis turbid clarity, greater than 300 protein, trace ketones, large blood, positive nitrites, moderate bilirubin, too numerous to count microscopic red blood cells, moderate white blood cells, 20 to 40 microscopic white blood cells, 2+ bacteria. IMAGING: Head CT: Right cerebral hemispheric mass is significantly improved or completely resolved. There is increase cerebral white matter, hypodensity or gliosis. There is no new masses and there is severe chronic sinusitis in the right maxillary sinus. EKG: Normal sinus rhythm, sinus arrhythmia with occasional PVCs. Rate is 73. ASSESSMENT/PLAN: 1. Urinary tract infection with history of chronic urinary tract infection with Pseudomonas. Apparently takes Bactrim every day at home per the . Most recently was treated for urinary tract infection with Rocephin at [facility]. We will do Zosyn here and follow up on the culture. 2. There is mention of penile discharge with the urinary tract infection and there was some so we will send that for culture. 3. Toxic encephalopathy. Should improve within a few days after treatment with antibiotics. Also metabolic encephalopathy with a mild degree of acute kidney injury. 4. Acute kidney injury on chronic kidney disease stage 3. He will get IV fluid hydration. 5. History of prostate cancer with metastasis to the brain. Followed by Dr. Saavedra. He also wishes to be a Do Not Resuscitate level 1. And so we will consult Dr. Saavedra and make him a Do Not Resuscitate. 6. Brain metastasis with history of right-sided craniectomy in 2016 with a small bleed postoperatively. Is on Keppra prophylactically to prevent seizures and we will continue that. 7. Deep venous thrombosis prophylaxis, sequential compression devices. Dictated by MOHIT Hutchison for Kris Bowling MD cc: MOHIT Hutchison MD I agree with most components of history, physical, assessment and plan. A separate addendum has been dictated. [facility]
[2018-10-09] MEDS: NS 1,000 ML IV SCH (21:30)
[2018-10-09] MEDS: COLACE PO SCH (21:46)
[2018-10-09] MEDS: ZOSYN 2.25 GM in NS 50 ML IV SCH (21:46)
[2018-10-10] MEDS: ZOSYN 2.25 GM in NS 50 ML IV SCH ×3 (03:30→18:40)
[2018-10-10] MEDS: NS 1,000 ML IV SCH ×3 (05:08→22:30)
[2018-10-10] MEDS: PROTONIX PO SCH (06:34)
--- NOTE | 2018-10-10 07:08 | EKG Report ---
Test Performed on : 10/09/2018 5:32:16 PM Test Reason : 2 second vtach Blood Pressure : / mmHG Vent. Rate : 073 BPM Atrial Rate : 073 BPM P-R Int : 152 ms QRS Dur : 092 ms QT Int : 432 ms P-R-T Axes : 046 003 029 degrees QTc Int : 475 ms Sinus rhythm. with sinus arrhythmia. with occasional premature ventricular complexes. Nonspecific ST and T wave abnormality Abnormal ECG When compared with ECG of 17-SEP-2018 18:03, Nonspecific T wave abnormality no longer evident in Anterior leads Nonspecific T wave abnormality, worse in Lateral leads Unconfirmed Result
[2018-10-10] MEDS: ZOFRAN IV PRN (08:46)
[2018-10-10] MEDS: COLACE PO SCH ×2 (08:46→20:32)
[2018-10-10] MEDS: KEPPRA PO SCH (08:46)
[2018-10-10 09:20] LABS: BASO# 0.03 X1000 (0.0-0.2); BASO% 0.3 % (0.0-0.8); EOS# 0.24 X1000 (0.0-0.7); EOS% 2.3 % (0.0-10.0); HEMATOCRIT 32.5 % (42.0-52.0); HEMOGLOBIN 10.6 g/dL (14.0-18.0); IMM GRAN# 0.09 X1000 (0.0-0.04); IMM GRAN% 0.9 % (0.0-0.5); LYMPH# 1.68 X1000 (1.2-3.4); LYMPH% 16.4 % (20.5-51.1); MCH 29.9 PG (27-31); MCHC 32.6 g/dL (33-37); MCV 91.5 FL (81-99); MONO# 1.42 X1000 (0.11-0.59); MONO% 13.8 % (1.7-9.3); MPV 8.9 FL (7.4-10.4); NEUT% 66.3 % (42.2-75.2); PLT 274 X1000 (130-400); RBC 3.55 XMIL (4.7-6.1); WBC 10.26 X1000 (4.8-10.8)
[2018-10-10 09:47] LABS: ALB/GLOB RATIO 0.7; ALBUMIN 2.5 g/dL (3.5-5.0); CALCIUM 8.7 mg/dL (8.8-10.2); CREATININE 2.2 mg/dL (0.7-1.2); POTASSIUM 3.7 mmol/L (3.5-5.1); TOTAL BILIRUBIN 0.62 mg/dL (0.20-1.00)
[2018-10-10] MEDS ORDERED: ALBUMIN 25% IV ONE (14:04)
[2018-10-10] MEDS: DURAGESIC 75 MICROGM/HR PATCH TD SCH (14:09)
--- NOTE | 2018-10-10 14:36 | PROGRESS NOTE ---
DATE: 10/10/2018 SUBJECTIVE: Patient is lying comfortably in bed. He is complaining of some pain at the level of the hip. His daughter is at the bedside. There is some concern about his home medications, especially pain medication. Since this patient is DNR, we believe, is appropriate to put this patient back on fentanyl patch. Vital signs are stable. Laboratory showed a chronic kidney disease with some elevation of the alkaline phosphatase and a positive urine culture that showed gram-negative rods. He is DNR level 1. OBJECTIVE: Vital Signs: Temperature 98.6, pulse 58, respiratory rate 16, blood pressure 156/57. Oxygen saturation 95% on room air. HEENT: Head normocephalic, no trauma. PERRLA. Neck: Supple. No JVD. Central trachea. Chest: Clear to auscultation. No wheezing, no rales. Abdomen: Soft. He does have a history of cystectomy with urostomy pouch placement with dark urine and sediment. Abdomen is protuberant. It is slightly distended. Positive bowel sounds. Extremities: 2+ lower extremity edema. No clubbing. No cyanosis. Neurologic: This patient is alert, awake. He is oriented, but his answers are slow. He is following commands. It looks like he has been confused on and off. LABORATORY: WBC 10.2, hemoglobin 10.6, hematocrit 32.5, platelets 274,000. Sodium 142, potassium 3.7, chloride 112, bicarbonate 17, BUN 29, creatinine 2.2, glucose 94, calcium 8.7, magnesium 2. AST 12, ALT 5, alkaline phosphatase 124, albumin 2.5. ASSESSMENT AND PLAN: 1. Urinary tract infection in a patient with history of chronic urinary tract infections,, including Citrobacter, E coli, Pseudomonas, Proteus. We do have a gram- negative benito in the urine culture. He has been placed on Zosyn. We will continue with the same management for now. Probably I will ask the Infectious Disease doctor to evaluate this patient. 2. Encephalopathy, likely a combination of urinary tract infection and medications. 3. Acute kidney injury on chronic kidney disease stage 3. He received some fluid hydration. He seems to be more hydrated at this moment. BUN and creatinine a little bit better compared with yesterday. He does have some fluid overload, as well. Albumin level is 2.5. I will give him albumin IV to see if that helps. I will continue with his diet, but he is not eating too much. I will continue checking the BUN and creatinine on a daily basis. His baseline hemoglobin is between 1.3, 1.4 and today is 2.2. 4. History of prostate cancer with metastases to the brain, followed by Dr. Saavedra. We placed we have placed a consult already, we will monitor. 5. Brain metastases with history of right-sided craniectomy in 2016, with a small bleed postoperatively. Continue with Keppra prophylactically to prevent seizures. 6. Diabetes. We will continue to monitor. 7. Constipation, aware. Continue with same management 8. Anxiety. We will restart his medications, lorazepam, but I will decrease the dose and then I will increase it slowly. But I will probably hold it until tomorrow morning. I will re- evaluate this patient at that time. 9. Hypertension, stable. 10. This patient is DNR level 1. cc: Bryon Heath MD MTDD
[2018-10-10] MEDS ORDERED: ATIVAN PO SCH (21:00)
[2018-10-11] MEDS: NS 1,000 ML IV SCH ×3 (00:28→22:39)
[2018-10-11] MEDS: ZOSYN 2.25 GM in NS 50 ML IV SCH ×2 (01:56→11:28)
[2018-10-11] MEDS: PROTONIX PO SCH (06:16)
[2018-10-11 07:31] LABS: BASO# 0.02 X1000 (0.0-0.2); BASO% 0.2 % (0.0-0.8); EOS# 0.19 X1000 (0.0-0.7); EOS% 1.9 % (0.0-10.0); HEMOGLOBIN 10.1 g/dL (14.0-18.0); LYMPH# 1.94 X1000 (1.2-3.4); LYMPH% 19.1 % (20.5-51.1); MCHC 31.6 g/dL (33-37); MONO% 13.8 % (1.7-9.3); MPV 9.2 FL (7.4-10.4); NEUT# 6.51 X1000 (1.4-6.5); PLT 258 X1000 (130-400); RBC 3.48 XMIL (4.7-6.1); RDW 14.1 % (11.5-14.5); WBC 10.16 X1000 (4.8-10.8)
[2018-10-11 07:52] LABS: ALB/GLOB RATIO 0.8; ALBUMIN 2.8 g/dL (3.5-5.0); CALCIUM 8.4 mg/dL (8.8-10.2); POTASSIUM 3.9 mmol/L (3.5-5.1); TOTAL BILIRUBIN 0.6 mg/dL (0.20-1.00); TOTAL PROTEIN 6.2 g/dL (6.3-8.3)
[2018-10-11] MEDS: ATIVAN PO SCH ×2 (08:42→20:36)
[2018-10-11] MEDS: KEPPRA PO SCH (08:42)
[2018-10-11] MEDS: COLACE PO SCH ×2 (08:42→20:36)
--- NOTE | 2018-10-11 12:31 | Diag Imaging Result Doc PS360 ---
EXAM: CHEST-1 VIEW 10/11/2018 HISTORY: bacteremia TECHNIQUE: AP portable upright at 1222 COMMENT: There is no evidence of acute cardiac or pulmonary disease. Compared to 09/17/2018 there has been no significant change considering differences in technique. IMPRESSION: Stable chest. Electronically signed by Arcadio Torrez 10/11/2018 12:29 PM
[2018-10-11] MEDS ORDERED: CUBICIN 800 MG in NS 100 ML IV SCH (13:00)
--- NOTE | 2018-10-11 13:24 | PROGRESS NOTE ---
DATE: 10/11/2018 SUBJECTIVE: Patient is lying comfortably in bed. He feels better compared with yesterday, his son-in-law is at the bedside, urine culture showed Citrobacter freundii sensitive to Zosyn. He also has a gram-positive cocci in blood and he has been placed on daptomycin. Infectious Disease Department on board. OBJECTIVE: Vital Signs: Temperature 99.1 degrees, pulse 98, respiratory rate 16, blood pressure 145/61, oxygen saturation 96 on room air. HEENT: Head normocephalic, no trauma. PERRLA. Neck: Supple. No JVD. No masses. Central trachea. Chest: Clear to auscultation. No wheezing. No rales. Maybe some crepitus at the bases. Abdomen: Soft. He does have a history of cholecystectomy with urostomy pouch placement with some dark urine and sediment, abdomen is protuberant and slightly distended. Positive bowel sounds. Extremities: 2+ lower extremity edema. No clubbing. No cyanosis. Neurological: The patient is alert, awake. He is oriented, but his answers are slow though he is oriented to place, he is oriented to person and time. He does have left-sided weakness, probably because of the metastasis or previous stroke. LABORATORY: WBC 10.1, hemoglobin 10.1, hematocrit 32, platelets 258,000 sodium 141, potassium 3.9, chloride 112, bicarbonate 16, BUN 26, creatinine 2, glucose 86, calcium 8.4, AST 11, ALT 5, alkaline phosphatase 107, albumin 2.8. ASSESSMENT AND PLAN: 1. Urinary tract infection, positive culture that showed Citrobacter freundii, this patient has been placed on Zosyn. Infectious Disease Department following this patient. 2. 102 gram-positive cocci bacteremia, the patient has been placed on daptomycin. We will continue to monitor. 3. Encephalopathy, likely a combination of urinary tract infection and medications. 4. Acute kidney injury on chronic kidney disease stage 3. He received some fluid hydration. He seems to be hydrated at this moment. He is not tolerating too much p.o. BUN and creatinine getting better compared with the previous days. He seems to have some fluid overload. Albumin was 2.5 and increased to 2.8 after getting some albumin yesterday. We will continue to monitor. 5. History of prostate cancer with metastasis to brain, followed by Dr. Saavedra, we have placed a consult already. We will monitor. 6. Brain metastasis with history of right-sided craniectomy in 2016, with small bleed postoperatively. Postoperatively, continue with Keppra prophylactically to prevent seizures. 7. Diabetes, continue to monitor. 8. Constipation, aware. Continue with same management. 9. Anxiety. Continue home medications. 10. Hypertension, stable, a little bit elevated. 11. This patient is Do Not Resuscitate level 1. 12. Overall, this patient feels better and I believe he is getting better, but his prognosis is poor due to his cancer and comorbidities. cc: Bryon Heath MD
--- NOTE | 2018-10-11 14:01 | INFECTIOUS DISEASE CONSULT REP ---
DATE: 10/11/2018 CONCLUSION: The patient has a history of recurrent urinary tract infections with different organisms. The patient also has as seen on CT scan a stable severe chronic sinusitis of the right maxillary sinus. Finally, the patient does have 1 of 2 blood cultures positive for gram-positive coccus. This could be a contaminant such as that due to Staph epidermidis or it could be a pathogen such as that due to Staph aureus. RECOMMENDATIONS: I agree with treating the patient with Zosyn. I have increased the dose to 3.375 g IV every 6 hours. I have ordered a CT scan stone search and finally, I have ordered a chest x-ray. Pending the identification of the patient's positive blood culture, I have started the patient on daptomycin. DISCUSSION: The patient is unable to provide a history and the patient's son-in-law was present but he had a limited knowledge of the patient's illnesses. All of the information I obtained was from information in the computer. The patient was admitted to the hospital with an altered mental status and a dark urine which now is bloody. His CBC shows a white count of 10,160, hemoglobin 10.1, platelet count 258,000. Creatinine is 2. GFR is 34. Liver function studies are normal. Urinalysis showed white cells, red cells and bacteria. The urine culture grew Citrobacter, 1/2 blood cultures grew gram-positive cocci. CT scan of the head showed the patient's right cerebral mass has resolved and did show as mentioned above a chronic severe maxillary sinusitis. REVIEW OF SYSTEMS: This was unable to be obtained from the patient. 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 SURGICAL HISTORY: Positive for prostatectomy, cystectomy with a urostomy pouch and pelvic bone removed. Finally, the patient had a right craniectomy. ALLERGIES: Lyrica and gabapentin. HOME MEDICATIONS: Include Benadryl, milk of magnesia, polyethylene glycol, Colace, Effexor, Keppra, Protonix, Voltaren, Zytiga, fentanyl patch, Ativan, and lisinopril. PHYSICAL EXAMINATION: Temperature is 99 degrees, pulse 59, respirations 12, blood pressure 153/63. The patient weighs 291 pounds.General: This is a morbidly obese, elderly male. He was very lethargic today. Head/eyes/ears/nose/throat: No drainage was noted from the nose or ears. I did not see any white patches in his mouth. Neck: No meningismus. Lungs: Clear to auscultation. Cardiovascular: Heart rate is regular. Abdomen: Soft and nontender. The patient does have a urostomy pouch. Neurologic: The patient was very lethargic. A few times he was arousable but he quickly went back to sleep. Integument: No rash noted. Bones, joints, muscles: No swollen joints. There was no muscle tenderness. Thank you for the consult. cc: Isaias Valdovinos MD
[2018-10-11] MEDS: ZOSYN 3.375 GM in NS 50 ML IV SCH ×2 (16:45→22:34)
--- NOTE | 2018-10-11 21:18 | Diag Imaging Result Doc PS360 ---
EXAM: CT RENAL STONE SEARCH 10/11/2018 HISTORY: UTI TECHNIQUE: This exam was performed using automated exposure control, adjustment of mA or kV according to patient size, and/or use of iterative reconstruction technique. COMMENT: The study is somewhat suboptimal due to positioning the patient within the gantry and cut off of the right hand side of the patient. There is pleural fluid on the left which was not present at the time the previous examination of 09/07/2011. There are granulomata in the spleen. There are multiple hepatic cysts and granulomata which were also present at the time the previous study. The gallbladder is somewhat distended but there is no evidence of stones and this is similar in appearance to the previous study. The adrenal glands are not enlarged. There is dilatation of both renal collecting systems. This was not the case on the previous study. There has been a cystectomy and ileal loop conduit formation. The ostomy is in the right lower quadrant. There is some anasarca. There is stool in the colon. The small bowel is not distended. There are severe degenerative changes in the hips particularly the left hip and there are deformities in the ischial tuberosities and pubic rami which may be due to previous fractures. There is marked sclerosis of the sacrum which appears somewhat worse than on the previous study. There is some lucency in the sacral natacha bilaterally but more so on the left than the right which was present at the time the previous study. These findings may be related to chronic insufficiency fractures. There is severe degenerative facet disease at multiple levels in the lumbar spine particularly at the L4-5 and L5-S1 levels. IMPRESSION: 1. Left pleural effusion and anasarca. This may be secondary to renal failure. 2. Bilateral hydronephrosis. 3. Constipation. 4. 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 Electronically signed by Arcadio Torrez 10/11/2018 9:15 PM
[2018-10-12] MEDS: ZOSYN 3.375 GM in NS 50 ML IV SCH ×3 (04:08→18:22)
[2018-10-12] MEDS: PROTONIX PO SCH (06:15)
[2018-10-12 07:54] LABS: BASO# 0.04 X1000 (0.0-0.2); BASO% 0.4 % (0.0-0.8); EOS% 1.8 % (0.0-10.0); HEMATOCRIT 31.4 % (42.0-52.0); HEMOGLOBIN 10.1 g/dL (14.0-18.0); IMM GRAN# 0.18 X1000 (0.0-0.04); IMM GRAN% 1.6 % (0.0-0.5); LYMPH% 16.7 % (20.5-51.1); MCH 29.5 PG (27-31); MCHC 32.2 g/dL (33-37); MCV 91.8 FL (81-99); MONO# 1.44 X1000 (0.11-0.59); MONO% 12.7 % (1.7-9.3); NEUT# 7.61 X1000 (1.4-6.5); NEUT% 66.8 % (42.2-75.2); PLT 292 X1000 (130-400); RBC 3.42 XMIL (4.7-6.1); RDW 14.1 % (11.5-14.5); WBC 11.37 X1000 (4.8-10.8)
[2018-10-12 08:16] LABS: POTASSIUM 3.4 mmol/L (3.5-5.1)
[2018-10-12 08:17] LABS: CALCIUM 8.4 mg/dL (8.8-10.2)
[2018-10-12] MEDS: COLACE PO SCH ×2 (08:43→20:52)
[2018-10-12] MEDS: NS 1,000 ML IV SCH (08:43)
[2018-10-12] MEDS: KEPPRA PO SCH (08:43)
[2018-10-12] MEDS: ATIVAN PO SCH ×2 (08:43→20:52)
[2018-10-12] MEDS ORDERED: KLOR-CON PO ONE (10:41)
[2018-10-12] MEDS ORDERED: ALBUMIN 25% IV ONE (12:00)
--- NOTE | 2018-10-12 13:57 | PROGRESS NOTE ---
DATE: 10/12/2018 SUBJECTIVE: Patient is lying comfortably in bed. Actually, he is sleeping. His is at the bedside and as per the , he was completely awake and talking more clearly today. He was still a little bit confused but confused, but not that much. We have a positive culture that showed coagulase-negative Staphylococcus. He was started on daptomycin, which I have stopped. I will continue with Zosyn. I had a large conversation with the at the bedside. They have been thinking about hospice for a little bit but they have not made a decision yet. I will continue with the same management. CT scan showed some hydronephrosis, but no stones. I will give him some albumin and I will try to give him some Lasix to decrease the fluid overload. Probably I will get the urologist today or tomorrow after talking to the infectious disease doctor which ordered the CT scan. OBJECTIVE: Vital Signs: Temperature 98.4 degrees, pulse 56, respiratory rate 15, blood pressure 164/64, oxygen saturation 99 on room air. HEENT: Head normocephalic no trauma. PERRLA. Neck: Supple. No JVD. No masses. Central trachea. Chest: Clear to auscultation some crepitus at the bases. Abdomen: Soft. He does have a history of cystectomy with urostomy pouch placement with some dark urine and sediment. Abdomen is protuberant, slightly distended, positive bowel sounds. Extremity: 2 to 3+ lower extremity edema. No clubbing. No cyanosis. Neurological: This patient is sleeping, but as per the at the bedside he was awake, alert, and he was talking to her and he was making more sense than before. LABORATORY: WBC 11.3, hemoglobin 10.1, hematocrit 31.4, platelets 292,000 sodium 144, potassium 3.4, chloride 114, bicarbonate 17, BUN 22, creatinine 2, glucose 85, calcium 8.4. ASSESSMENT AND PLAN: 1. Urinary tract infection with a positive culture that showed Citrobacter freundii and diphtheroids. This patient has been placed on Zosyn, continue the same management. 2. 1/2 gram positive cocci bacteremia that showed coagulase-negative Staphylococcus which is likely a contamination. I will stop the daptomycin and I will continue to monitor. 3. Acute kidney injury and chronic kidney disease stage 3. He received some fluid hydration, but has been stopped due to fluid overload. His BUN and creatinine are better compared with the with the previous days, but since he is having fluid overload. I will give him a dose of albumin and also I will give him some Lasix to see how he does. 4. History of prostate cancer with metastases metastasis to brain, followed by Dr. Saavedra- pending recommendations. 5. Brain metastasis with history of right-sided craniectomy in 2016, with a small bleed postoperatively, continue with Keppra prophylactically to prevent seizures. 6. Diabetes continue to monitor. 7. Constipation. Aware. Continue with same management. 8. Anxiety. I have placed this patient on lorazepam which he was taking at home. After talking to the I will decrease the morning dose from 1 to 0.25, see if this patient is sleepy. Usually they are taking just a night dose at home. 9. Hypertension stable. A little bit elevated. 10. This patient is do not resuscitate level 1. 11. Overall, this patient looks better, but he has a poor prognosis due to his cancer and comorbidities. cc: Bryon Heath MD
--- NOTE | 2018-10-12 15:16 | Diag Imaging Result Doc PS360 ---
EXAM: CHEST-PORTABLE 10/12/2018 HISTORY: SOB TECHNIQUE: AP portable at 1503 COMMENT: There is no evidence of acute cardiac or pulmonary disease. The appearance of the chest has not changed significantly since 10/11/2018. IMPRESSION: Stable chest. Electronically signed by Arcadio Torrez 10/12/2018 3:14 PM
[2018-10-12] MEDS ORDERED: LASIX IV ONE (16:00)
[2018-10-13] MEDS: ZOSYN 3.375 GM in NS 50 ML IV SCH ×4 (00:20→17:31)
[2018-10-13] MEDS: PROTONIX PO SCH (06:14)
[2018-10-13 07:47] LABS: CALCIUM 8.5 mg/dL (8.8-10.2); CREATININE 1.9 mg/dL (0.7-1.2); POTASSIUM 2.8 mmol/L (3.5-5.1)
[2018-10-13] MEDS ORDERED: LASIX IV ONE (08:32)
[2018-10-13] MEDS: KLOR-CON PO SCH ×2 (09:58→22:07)
[2018-10-13] MEDS: ATIVAN PO SCH ×2 (09:58→22:07)
[2018-10-13] MEDS: KEPPRA PO SCH (09:58)
[2018-10-13] MEDS: COLACE PO SCH ×2 (09:58→22:07)
--- NOTE | 2018-10-13 11:59 | PROGRESS NOTE ---
DATE: 10/13/2018 SUBJECTIVE: This patient looks better today. He is lying comfortably in bed. He has been having negative balance, around 6.3 L. Kidney function is getting better. I will give him an extra dose of Lasix today to see how he does. I will consult palliative care and also I will consult urology department tomorrow to evaluate his bilateral hydronephrosis. Family member is at the bedside, his . All the questions were answered. OBJECTIVE: Vital Signs: Temperature 98.2 degrees, pulse 60, respiratory rate 20, blood pressure 170/58, oxygen saturation 96 on room air. HEENT: Head normocephalic. No trauma. PERRLA. Neck: Supple. No JVD. No masses. Central trachea. Chest: Clear to auscultation. Some crepitus at the bases. Abdomen: Soft. He does have a history of cystectomy with urostomy pouch placement with some dark urine and sediment coming out but better compared with the previous days. Abdomen is protuberant, slightly distended. Positive bowel sounds. Abdominal wall edema. Extremities: There is 2 to 3+ lower extremity edema. No clubbing. No cyanosis. Neurological Examination: This patient is sleepy but arousable. Oriented. He is following commands. He is is at the bedside. Laboratory: Sodium 144, potassium 2.8, chloride 111, bicarbonate 17, BUN 20, creatinine 1.9. ASSESSMENT AND PLAN: 1. Urinary tract infection with positive culture that showed Citrobacter freundii and diphtheroids. Infectious disease department on board. Continue with antibiotics. 2. One out of two gram positive cocci bacteremia that showed coagulase-negative staphylococcus which is likely a contamination. I have stopped the daptomycin and I will continue to monitor. 3. Acute kidney injury on chronic kidney disease stage 3. He received some fluid hydration but it has been stopped due to fluid overload. His BUN and creatinine are better compared with the previous days. We have been giving him some albumin and Lasix. So far, we have a negative balance of 6.3 L. 4. History of prostate cancer with metastasis to brain, followed by Dr. Saavedra, pending recommendations. 5. Brain metastases with a history of right-sided craniectomy in 2016 with a small bleed postoperatively. Continue with Keppra prophylactically to prevent seizures. 6. Diabetes. Continue to monitor. 7. Constipation. Aware. Continue with the same management. 8. Anxiety. We will continue with his lorazepam. 9. Hypertension. I will add hydralazine to his medications. He has been on lisinopril but it has been stopped due to his acute kidney injury on chronic kidney disease. 10. This patient is Do Not Resuscitate level 1. 11. Overall, this patient has a poor prognosis but he is looking better. I have requested an evaluation by palliative care team. The agreed with that. cc: Bryon Heath MD MTDD
[2018-10-13] MEDS: APRESOLINE PO SCH ×2 (12:57→17:31)
[2018-10-13] MEDS ORDERED: ZOSYN ONE (12:57)
[2018-10-13] MEDS: ZOFRAN IV PRN (12:58)
[2018-10-13] MEDS: DURAGESIC 75 MICROGM/HR PATCH TD SCH (13:01)
--- NOTE | 2018-10-13 14:40 | CONSULTATION ---
DATE OF CONSULTATION: 10/13/2018 ATTENDING AND REFERRING PHYSICIAN: Trin[place]. HISTORY OF PRESENT ILLNESS: This 67-year-old male has a history of stage T4 prostate cancer. He has a history of central nervous system metastasis. The patient was admitted with probable urinary tract infection and mental status changes. The patient was in this hospital over a month ago with a urinary tract infection. He was discharged to [facility]. The patient developed increased confusion and weakness and had dark-colored urine and was returned to the emergency room. The patient underwent laparoscopic robot-assisted radical prostatectomy in 2007. The margins were positive and he underwent radiation therapy. Because of bladder problems, he underwent a cystectomy and formation of an ileal conduit in 2010. The patient states currently he is feeling better. He is on IV antibiotics (Zosyn). The patient has no history of kidney stones. He does have chronic renal insufficiency that has worsened since his last visit. His creatinine was around 1.2 to 1.3 in September 2018 and most recently is 1.8. The patient's CT stone search revealed bilateral hydroureteronephrosis. Also noted was a parastomal hernia. There was no evidence of renal lithiasis. PAST MEDICAL HISTORY: As noted in the HPI. Diabetes, anxiety, constipation, neuropathy and possible seizures secondary to his craniotomy. PAST SURGICAL HISTORY: As noted in the HPI, he did have a craniotomy in 2016 for [employer] metastasis. 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 There is no tobacco or alcohol use. ALLERGIES: He is allergic to Lyrica and gabapentin. REVIEW OF SYSTEMS: He states he feels a little better but it is having some swelling. He denies any recent pulmonary or bowel problems. PHYSICAL EXAMINATION: General: A normally developed, obese, age apparent, white male who is cooperative. HEENT: Normal for age. Lungs: Clear. Cardiovascular: Regular rate and rhythm without murmur. Abdomen: Obese, soft, nontender. No hepatosplenomegaly or masses. There is an ileostomy in the right lower quadrant that is pink. The collection bag is in place. : Uncircumcised male with some edema of the foreskin and scrotum consistent with some fluid overload. There is +1 pitting edema of the lower extremities. Neurologic: He moves all extremities on request. CT stone search is as noted in the HPI. LABORATORY EVALUATION: Has a white count of 11.37, hemoglobin 10.1, hematocrit of 31.4, platelets are 292,000. Serum electrolytes have a sodium 144, potassium 2.8, chloride 111, bicarb 17, BUN 20, creatinine 1.9. IMPRESSION: 1. Stage T4 prostate cancer status post craniotomy with removal of central nervous system metastasis. 2. Renal insufficiency. 3. Ileal conduit. 4. Parastomal hernia. 5. Bilateral hydroureteronephrosis. RECOMMEND: Ileal loopogram to try to determine where the obstruction is in each ureter. There should be free reflux from the conduit into each ureter and up into the kidneys. If there is, then the hydronephrosis is probably from reflux and should not cause any more problems. If the contrast does not reflux, it could be an anastomotic stricture and the treatment for that would be to place bilateral nephrostomy tubes if the patient desires. This was discussed with the patient and daughter. Thank you for this consultation. cc: Vinicio Hoffmann MD
[2018-10-14] MEDS: ZOSYN 3.375 GM in NS 50 ML IV SCH ×5 (01:49→23:51)
[2018-10-14] MEDS: PROTONIX PO SCH (05:59)
[2018-10-14 08:07] LABS: CALCIUM 8.7 mg/dL (8.8-10.2)
[2018-10-14 08:26] LABS: POTASSIUM 2.4 mmol/L (3.5-5.1)
[2018-10-14] MEDS ORDERED: SODIUM CHLORIDE 0.9% INJ PRN (09:00)
[2018-10-14] MEDS: APRESOLINE PO SCH ×3 (10:24→18:24)
[2018-10-14] MEDS: COLACE PO SCH ×2 (10:25→21:55)
[2018-10-14] MEDS: KEPPRA PO SCH (10:25)
[2018-10-14] MEDS: ATIVAN PO SCH ×2 (10:25→21:55)
[2018-10-14] MEDS: KLOR-CON PO SCH ×2 (10:26→21:55)
--- NOTE | 2018-10-14 13:31 | PROGRESS NOTE ---
DATE: 10/14/2018 SUBJECTIVE: This patient is having some nausea today. His potassium level is also low. I will replace it with 40 mEq in the morning and in the afternoon as well. I will hold the Lasix treatment. We removed so far 11.7 L. He has been having bowel movements. He is getting today an ileal loopogram to try to determine whether the obstruction piecing each ureter. OBJECTIVE: Vital Signs: Temperature 97.7 degrees, pulse 72, respiratory rate 20, blood pressure 123/61, and oxygen saturation 100% on room air. HEENT: Head normocephalic. No trauma. PERRLA. Neck: Supple. No JVD. No masses. Central trachea. Chest: Clear to auscultation with some crepitus at the bases. Abdomen: Soft. He does have a history of cystectomy with urostomy pouch placement. His urine looks more clear compared with the previous days. Abdomen is protuberant, slightly distended. Positive bowel sounds. Abdominal wall edema. Extremities: There is 2+ to 3+ lower extremity edema. No clubbing. No cyanosis. Neurological: The patient is sleepy, but arousable. He is oriented. He is following commands. His is at the bedside. LABORATORY: Sodium 142, potassium 2.4, chloride 107, bicarbonate 18, BUN 16, creatinine 2, glucose 86, and calcium 8.7. ASSESSMENT AND PLAN: 1. Urinary tract infection with positive culture that showed Citrobacter freundii and diphtheroids. Infectious Disease Department on board. Continue antibiotics. 2. 1/2 gram positive cocci bacteremia that showed coagulase-negative Staphylococcus which is likely contamination. 3. Acute kidney injury on CKD stage 3, getting better. Continue with same management. So far, we will remove 11.7 L. 4. Fluid overload as above. 5. History of prostate cancer with metastasis to brain, followed by Dr. Saavedra pending recommendations. 6. Brain metastases with history of right-sided craniectomy in 2016 with a small bleed postoperatively. Continue with Keppra prophylactically to prevent seizures. 7. Diabetes. Continue to monitor. 8. Constipation aware. Continue with same management. 9. Anxiety. We will continue with his lorazepam. 10. Hypertension. I added hydralazine to his medications. Blood pressure seems to be better controlled. He has been on lisinopril before, but it has been stopped due to his kidney dysfunction. 11. Constipation. Aware. He he is having bowel movements. Continue with same management. 12. Anxiety. Continue with lorazepam. 13. This patient is DNR level 1. 14. Overall, this patient has poor prognosis. We have requested an evaluation by Palliative Care team and also urology department due to bilateral hydronephrosis. We will wait for ileal loopogram results to decide any further treatment. cc: Bryon Heath MD
[2018-10-14] MEDS: PHENERGAN IV PRN ×2 (13:47→22:07)
[2018-10-14] MEDS: PERCOCET-5 PO PRN ×2 (13:48→22:06)
--- NOTE | 2018-10-14 18:27 | INFECTIOUS DISEASE PROGRESS NO ---
DATE: 10/14/2018 PRESENT ILLNESS: The patient has recurrent urinary tract infection. Currently, he has a Citrobacter urinary tract infection. He was found on his renal stone search CT to have bilateral hydronephrosis. Please refer to Dr. Vinicio Hoffmann' dictation about the cause of the patient's bilateral hydronephrosis and what measures may be undertaken. The patient also has a right maxillary sinusitis, and finally he had 1 of 2 blood cultures which grew a coagulase-negative Staph. This is a contaminant and does not require antibiotic treatment. MEDICATIONS: Currently the patient is on Zosyn. This is day #3. PHYSICAL EXAMINATION: Vital Signs: Temperature is 98.3 degrees, pulse 86, respirations 18, blood pressure 143/63. General: This is an ill-appearing, obese, elderly male. He is very lethargic today. Head/eyes/ears/nose/throat: No drainage noted from the nose or ears. Neck: No meningismus. Lungs: Clear to auscultation. Cardiovascular: Regular heart rate. Abdomen: Soft and nontender. Neurologic: The patient is very lethargic today. He did not respond to verbal stimuli. There was no tremor. LAB AND X-RAY: The patient's blood cultures showed 1/2 is growing a coagulase-negative Staph as mentioned above. The patient's creatinine is 2. GFR is 34. There is no new radiographic study for today and a CBC was not ordered for today. ASSESSMENT AND PLAN: The patient has recurrent urinary tract infection as well as bilateral hydronephrosis. I am going to continue Zosyn and Dr. Hoffmann is managing the patient's hydronephrosis. I refer you to his consult about the hydronephrosis. As regarding the patient's positive blood culture, as mentioned above, it is a contaminant and does not require treatment and I have discontinued daptomycin. COMORBIDITIES: Unfortunately the patient has metastatic prostate cancer and he also has bilateral hydronephrosis. Again, I refer you to Dr. Hoffmann' excellent consult on what is causing the hydronephrosis and what if anything needs to be done about it. cc: Isaias Valdovinos MD
--- NOTE | 2018-10-14 19:12 | Diag Imaging Result Doc PS360 ---
EXAM: LOOPOGRAM W S/I INDICATION: bi-lateral hydroureteronephrosis. TECHNIQUE: The patient's urostomy was catheterized with a Carreon and water-soluble contrast was injected. COMPARISON: None. FINDINGS: Upon injection of the contrast, there was filling of the neobladder. However, much of the contrast leaked around the catheter. No ureteral reflux was witnessed during the study. However, it is unclear if the neobladder was adequately distended due to the significant leakage. Before the bladder could be further distended, the patient requested that the procedure be stopped due to severe back pain from lying on the table. IMPRESSION: Limited study for the reasons discussed above. However, no ureteral reflux was witnessed. Electronically signed by Taz Killian 10/14/2018 7:10 PM
[2018-10-15] MEDS: PROTONIX PO SCH (06:35)
[2018-10-15] MEDS: ZOSYN 3.375 GM in NS 50 ML IV SCH ×3 (06:36→17:24)
[2018-10-15 08:13] LABS: BASO# 0.05 X1000 (0.0-0.2); BASO% 0.4 % (0.0-0.8); EOS# 0.32 X1000 (0.0-0.7); EOS% 2.8 % (0.0-10.0); HEMATOCRIT 32.9 % (42.0-52.0); IMM GRAN# 0.19 X1000 (0.0-0.04); IMM GRAN% 1.7 % (0.0-0.5); LYMPH# 2.43 X1000 (1.2-3.4); LYMPH% 21.4 % (20.5-51.1); MCH 29.6 PG (27-31); MCHC 33.4 g/dL (33-37); MCV 88.4 FL (81-99); MONO# 1.35 X1000 (0.11-0.59); MONO% 11.9 % (1.7-9.3); MPV 9.2 FL (7.4-10.4); NEUT% 61.8 % (42.2-75.2); PLT 343 X1000 (130-400); RBC 3.72 XMIL (4.7-6.1); RDW 14.1 % (11.5-14.5); WBC 11.34 X1000 (4.8-10.8)
[2018-10-15 08:20] LABS: CREATININE 2.1 mg/dL (0.7-1.2); POTASSIUM 2.6 mmol/L (3.5-5.1)
[2018-10-15] MEDS: PERCOCET-5 PO PRN ×2 (10:46→17:23)
[2018-10-15] MEDS: COLACE PO SCH ×2 (10:47→21:30)
[2018-10-15] MEDS: ATIVAN PO SCH ×2 (10:47→21:30)
[2018-10-15] MEDS: KEPPRA PO SCH (10:47)
[2018-10-15] MEDS: APRESOLINE PO SCH ×3 (10:47→17:23)
[2018-10-15] MEDS: KLOR-CON PO SCH ×2 (12:39→21:30)
--- NOTE | 2018-10-15 15:47 | PROGRESS NOTE ---
DATE: 10/15/2018 SUBJECTIVE: The this patient is resting in bed, potassium level is low and I will replace it. Palliative care has been involved and the patient/family has requested to go home with hospice. OBJECTIVE: Vital Signs: Temperature 98.2 degrees, pulse 60, respiratory rate 16, blood pressure 151/74, oxygen saturation 98 on nasal cannula. HEENT: Head normocephalic, no trauma. PERRLA. Neck: Supple, no JVD. No masses. Central trachea. Chest: Clear to auscultation with some crepitus at the bases. Abdomen: Soft. He has a history of cystectomy with urostomy pouch placement. His urine looks more clear. Abdomen: Soft, protuberant, slightly distended, positive bowel sounds. Abdominal wall edema. Extremities: There is 2+ to 3+ lower extremity edema. No clubbing. No cyanosis. Neurological: The patient is sleepy, but arousable. He is oriented, he is following commands. His daughter is at the bedside. LABORATORY: WBC 11.3, hemoglobin 11, hematocrit 32.9, platelet 343,000. Sodium 144, potassium 2.6, chloride 109, bicarbonate 19, BUN 16, creatinine 2.1, glucose 97, calcium 9. ASSESSMENT AND PLAN: 1. Urinary tract infection with possible with positive culture that showed Citrobacter freundii and diphtheroids, infectious disease department on board. For now we will continue with antibiotics but it looks like this patient will go home with hospice and probably he will go without antibiotics. 2. One out of two gram-positive cocci bacteremia that showed coagulase-negative Staphylococcus which is likely contamination. 3. Acute kidney injury on chronic kidney disease stage 3, stable. 4. Fluid overload, so far we removed around 13.4 L. 5. History of prostate cancer with metastasis to brain, followed by Dr. Saavedra, pending recommendations. 6. Brain metastases with the with history of right-sided craniectomy in 2016 with a small bleed postoperatively. Continue with Keppra prophylactically to prevent seizures. 7. Diabetes continue to monitor. 8. Constipation, aware. Continue with same management. 9. Anxiety. We will continue with lorazepam. 10. Hypertension, continue with same treatment. 11. This patient is do not resuscitate level 1. 12. Overall this patient has poor prognosis. They have requested to go home with hospice, and the family is meeting with hospice care team today. I will continue to monitor this patient. 13. Hypokalemia. I will replace the potassium. cc: Bryon Heath MD
--- NOTE | 2018-10-15 18:18 | INFECTIOUS DISEASE PROGRESS NO ---
DATE: 10/15/2018 PRESENT ILLNESS: Mr. Tompkins is being treated for a Citrobacter urinary tract infection, as well as a right maxillary sinusitis. MEDICATIONS: He is receiving Zosyn 3.375 g IV every 6 hours. Today is day 4 of that medication. PHYSICAL EXAMINATION: Vital Signs: Temperature is 98.2 degrees, pulse rate 136, respiratory rate 16, blood pressure 151/74, O2 saturation is 98% on room air. General: This is a chronically ill- appearing, obese, elderly male. He is lying in bed, currently in no acute distress. HEENT: Atraumatic, normocephalic. Oral mucous membranes are pink and dry. Conjunctivae are pink. Neck: Supple. Trachea is midline. Cardiovascular: Irregularly irregular. Atrial fibrillation on the monitor with a current rapid ventricular response. I spoke with the energy technician who says he normally does not sustain, but lingers mostly at the rate of 90s. Respiratory: Lung sounds are clear to auscultation, upper lobes. Diminished in the mid and bases. No work of breathing is noted. Abdomen: Soft, obese, and nontender. Bowel sounds are active. Neurologic: He is lethargic but arousable and will follow commands. He has some mild confusion. There is generalized weakness, more so on the left side than the right. LABORATORY AND X-RAY: Today his white count is 11.34, hemoglobin 11, platelet count 343,000. Creatinine 2.1, GFR 32. His urine previously grew Citrobacter freundii. No radiology reports today. ASSESSMENT AND PLAN: Mr. Tompkins is being treated for a recurrent urinary tract infection and has bilateral hydronephrosis which is being treated by Dr. Hoffmann. For now, we will continue the Zosyn as ordered for the Citrobacter UTI as well as an maxillary sinusitis. The patient is a DNR level 1 and a palliative care consult has been done. These plans have been discussed with and recommended by Dr. Valdovinos. COMORBIDITIES: For Mr. Tompkins include metastatic prostate cancer with mets to the brain and history of craniotomy, seizures, anxiety, and bilateral hydronephrosis. Dictated by MOHIT Boswell for Isaias Valdovinos MD cc: Isaias Valdovinos MD [facility]ITAL[facility]livia
[2018-10-16] MEDS: ZOSYN 3.375 GM in NS 50 ML IV SCH ×2 (00:51→06:31)
[2018-10-16] MEDS: PROTONIX PO SCH (06:31)
[2018-10-16] MEDS: COLACE PO SCH ×2 (10:07→10:08)
[2018-10-16] MEDS: KEPPRA PO SCH (10:07)
[2018-10-16] MEDS: APRESOLINE PO SCH (10:07)
[2018-10-16] MEDS: ATIVAN PO SCH (10:07)
[2018-10-16 11:19] VITALS: BP 123/63
--- NOTE | 2018-10-17 13:02 | DISCHARGE SUMMARY ---
ADMISSION DATE: 10/09/2018 DISCHARGE DATE: 10/16/2018 DISCHARGE DIAGNOSES: 1. History of prostate cancer with metastasis to brain, with right-sided craniectomy in 2016, small bleed postoperatively. 2. Urinary tract infection due to Citrobacter freundii and diphtheroids. 3. Acute on chronic kidney disease. 4. Fluid overload. 5. Diabetes. 6. Constipation. 7. Anxiety. 8. Hypertension. 9. Hypokalemia. PROCEDURES PERFORMED: 1. Head CT dated 10/09/2018, impression: Improvement from prior. No acute intracranial process. 2. 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 3. Chest x-ray dated 10/11/2018, impression: Stable chest. No evidence of acute cardiac or pulmonary disease. 4. Chest x-ray dated 10/12/2018: Stable. 5. Ileal loopogram dated 10/14/2018, impression: Limited study. However, no urethral reflux was witnessed. CONSULTS: Infectious Disease Department, Dr. Valdovinos; Urology Department, Dr. Hoffmann; Palliative Care Department. HOSPITAL COURSE: A 67-year-old male with a past medical history of prostate cancer with brain metastasis, and cystectomy with urostomy pouch, admitted on 10/09/2018, came with a chief complaint of dark urine and altered mental status. He was previously admitted in early 09/2018 for urinary tract infection, and he was sent to [facility]. Then, 7 to 8 days ago, he started having dark urine that has been worse on a daily basis, and also confusion. Urinalysis revealed significant urinary tract infection. Also, he came in with acute on chronic kidney disease. He was admitted to the medical floor. He was placed on antibiotics. Infectious Disease Department was consulted, and they managed his medications. We did a renal CT that showed hydronephrosis. Urology consulted, and they recommended to do an ileal loopogram that did not show any urethral reflux. Palliative Care on board, and after discussion with the family and the patient, they have decided to go home with hospice, so everything has been set up for the patient. He will be discharged today with [facility]. PHYSICAL EXAMINATION: Vital Signs: Temperature 99 degrees, pulse 66, respiratory rate 24, blood pressure 123/63, oxygen saturation 100% on room air. HEENT: Head normocephalic. No trauma. PERRLA. Neck: Supple. No JVD. No masses. Central trachea. Chest: Clear to auscultation with some crepitus at the bases. Abdomen: Soft, protuberant. He has a cystectomy with urostomy pouch placement. The urine looks more clear though. Abdominal wall edema. Extremities: There is 2+ to 3+ lower extremity edema. No clubbing. No cyanosis. Neurological: The patient is sleepy, but arousable. He is oriented, but he seems to be confused on and off. No family members at the bedside. LABORATORY DATA: No lab work done today. DISCHARGE MEDICATIONS: Medication will be provided by hospice care. cc: Bryon Heath MD
== END 2018-10-16 12:46 | disposition hospice, home (50) | DRG 698 ==
LOC: SUPCPDRO → ED 14:40 → SUATTDRO 18:22 → 3N 18:22
PROVIDERS: ATTEND Internal Medicine
CPT/HCPCS: 50690; 70450; 71010; 71045; 74176; 74425; 80048; 80053; 81001; 82140; 82550; 83605; 83735; 84484; 85025; 85610; 85730; 87040; 87070; 87077; 87088; 87186; 93005; 94761; 96361; 96365; 97110; 97162; 97530; 99285; A9270; J0696; J0878; J1940; J2405; J2543; J2550; J7030; P9047; Q9958